=== PATIENT | female | born 1970 | race Caucasian/White ===

== ENCOUNTER 2018-02-03 06:10 | Day surgery (SDC) | payer OTHER ==
[2018-02-02 09:55] LABS: HEMATOCRIT 44.4 % (36.0-48.0); HEMOGLOBIN 15.4 g/dL (12-16); MCHC 34.7 g/dL (31.0-37.0); MCV 89.5 fL (80.0-100.0); MEAN PLATELET VOLUME 9.7 fL (7.4-10.4); PLATELET COUNT 212 10x3/uL (130-400); RBC 4.96 10x6/uL (4.00-5.40); RDW 13.3 % (11.5-14.5); WBC 10.8 10x3/uL (4.8-10.8)
[2018-02-02 13:35] LABS: CALC OSMOLALITY 274 mosm/kg (275-300); CALCIUM 9.2 mg/dL (8.5-10.1); CARBON DIOXIDE 24.5 mmol/L (21.0-32.0); CHLORIDE - SERUM 104 mmol/L (98-107); CREATININE - SERUM 0.8 mg/dL (0.6-1.3); GLUCOSE 85 mg/dL (74-106); POTASSIUM - SERUM 4.1 mmol/L (3.5-5.1); SODIUM 139 mmol/L (136-145); UREA NITROGEN 8 mg/dL (7-18); eGFR NON AFRICAN AMERICAN 81 mL/min (90-120)
[2018-02-02 13:42] LABS: BASOPHILS 2.8 % (0-2); EOSINOPHILS 0.8 % (0-7); IMMATURE GRANULOCYTES 0.1 % (0-5); LYMPHOCYTES 41.6 % (15-50); MONOCYTES 5.6 % (2-11); NEUTROPHILS 49.1 % (40-80)
[~2018-02-03] VITALS: Ht 170.2 cm; Wt 79.8 kg
[~2018-02-03 06:10] MED LIST: CYMBALTA60 MG PO; HYDROCODONE-IB1 EAC3 PO; PLAQUENIL 200200 MG PO; PREMARIN0.625 MG PO; REQUIP1 MG PO; VITAMIN B-121000 MCG IM
[2018-02-03 06:30] VITALS: BP 124/79; Ht 170.2 cm; Wt 79.8 kg
[2018-02-03] MEDS ORDERED: PERCOCET 7.5/321 TAB PO (08:57)
[2018-02-03] MEDS ORDERED: DURICEF500 MG PO (08:59)
--- NOTE | 2018-02-03 12:26 | NUR ---
PATIENT RECIEVED BACK FROM SURGERY WITH NO COMPLICATIONS. AT BEDSIDE VERBALIZED DC INSTRUCTIONS. PAIN PILL GIVEN BEFORE DC PER DR SCHULER. IV REMOVED WITH CATH INPLACE.
--- NOTE | 2018-02-03 12:36 | OP ---
PATIENT NAME: WILEY DE LEON MEDICAL RECORD: [id number] :70 LOCATION:STORM ADMISSION DATE: SURGEON: SELWYN SCHULER DO DATE OF OPERATION: 02/03/2018 PROCEDURE PERFORMED: Left de Quervain release or first dorsal compartment release of the left wrist. PREOPERATIVE DIAGNOSIS: Left de Quervain tenosynovitis with radial styloid tenosynovitis of the left wrist. POSTOPERATIVE DIAGNOSIS: Left de Quervain tenosynovitis with radial styloid tenosynovitis of the left wrist. INDICATIONS: Ms. De Leon is a 47-year-old female, who was seen in my office with pain with ulnar deviation of the left wrist and any abduction or adduction of the thumb with it tucked into palm. She has been dealing with this for quite some time. We tried an injection to no avail, it did not help. She is tired of it. It is affecting her activities of daily living and having tried all manner of nonoperative treatment, was ready to have something done. She was undergoing procedure by Dr. Dhaliwal today and asked that if I would do this at the same time. I informed her I would. We would do this first and then he would do his procedure. She was informed of the risks and benefits of the procedure including damage to the radial sensory nerve or vessels, need for further surgery, continued pain, and snapping of the tendon. She signed the consent. SURGEON: Selwyn Schuler DO DESCRIPTION OF PROCEDURE: The patient was taken to the operative suite, laid in supine position. Left upper extremity was prepped and draped in sterile fashion. Once she was prepped and draped, a time-out was performed. Everyone was in agreement with correct side, site, patient, and procedure. The patient was given 2 grams of Ancef preoperatively. The tourniquet was then placed on the arm and once the time-out had been performed, Esmarch was used to exsanguinate the left upper extremity and it was inflated to 250 mmHg up for 10 minutes. The incision then began over the radial styloid of the left wrist and careful dissection was made down to the first dorsal compartment tendon sheath. This was divided on the very dorsal side of it. It was seen to have an extra slip underneath of the APL and EPB. The extra slip was divided as well and opened up allowing the tendon to glide smoothly. These were both quite thick and there was quite a bit of synovitis in the tendon sheath. This was removed and then the sheath was tacked down very loosely with 5-0 Monocryl with a single stitch. Tourniquet was then let down. Any bleeding was coagulated with bipolar and then 5 mL of 0.5% Marcaine with epinephrine were injected into the site. The skin was then closed with 5-0 Monocryl in inverted interrupted fashion and Dermabond was placed on the skin. Adaptic, 4 x 4, Kerlix, and Coban was lightly wrapped on the wrist. At that point, Dr. Dhaliwal did his portion of the procedure. TRANSINT:[id number] Voice Confirmation ID: [id number] DOCUMENT ID: [id number] OPERATIVE REPORT [id number] WILEY DE LEON,SELWYN Stone DO at 1236 CC: [id number] DICTATION DATE: 02/03/18906 POUCH MAKER: 02/03/18 1131 [facility] [address] [place] [address]
--- NOTE | 2018-02-03 16:36 | OP ---
PATIENT NAME: WILEY DE LEON MEDICAL RECORD: [id number] :70 LOCATION:STORM ADMISSION DATE: SURGEON: VON ARCHER MD DATE OF OPERATION: 02/03/2018 PREOPERATIVE DIAGNOSES: 1. Bilateral axillary hidradenitis. 2. Lupus. 3. Tenosynovitis. POSTOPERATIVE DIAGNOSES: 1. Bilateral axillary hidradenitis. 2. Lupus. 3. Tenosynovitis. PROCEDURE: Bilateral axillary excision of hidradenitis. SURGEON: Von Archer MD REPORT OF PROCEDURE: The patient's bilateral axilla were prepped and draped in sterile fashion. The left side was approached first. An ovoid incision 6 cm in length was made around the area of inflamed tissue underneath an old scar from the previous axillary dissection and electrocautery was used to dissect through subcutaneous tissues. We penetrated down into the surrounding normal fatty tissues and removed this core of inflamed tissue. The wound bed was irrigated out with peroxide and saline solution. Any bleeding that was found was then treated with electrocautery. The subcutaneous tissues were reapproximated with interrupted 3-0 Vicryls and the skin was closed with interrupted vertical mattress sutures using 2-0 nylon. Just below and anterior to this, there was another small area of inflammatory tissue. An ovoid incision 3-1/2 cm in length was made around this. Electrocautery was used to dissect through the subcutaneous tissues. Surrounding this tissue was normal appearing fatty tissue. The wound was then irrigated out with peroxide and saline solution and reapproximated with interrupted 3-0 Vicryls. The skin was closed with interrupted vertical mattress 2-0 nylons. We then approached the right side. An area of inflammatory tissues on the anterior aspect of the right axilla, a 6-cm ovoid incision was made overlying this. Also, incorporating a portion of a previous scar from an axillary dissection, the subcutaneous tissue was excised including this inflammatory mass. The surrounding tissues were all normal appearing fatty tissues at the conclusion of the case. We irrigated out the wound with peroxide and saline solution and any bleeding was treated with electrocautery. The subcutaneous tissues were reapproximated with interrupted 3-0 Vicryl and the skin was closed with interrupted vertical mattress 2-0 nylons. COMPLICATIONS: None. CONDITION: Stable. ANESTHESIA: General endotracheal. BLOOD LOSS: 30 mL. TRANSINT:[id number] Voice Confirmation ID: [id number] DOCUMENT ID: [id number] OPERATIVE REPORT [id number] WILEY DE LEON CHRISTIAN MD at 1636 CC: NAHUM PORTILLO MD [id number] DICTATION DATE: 02/03/18 0949 BENDING MACHINE SET UP OPERATOR: 02/03/18 1245 [facility] 02/03/18 [place] [id number]
== END 2018-02-03 11:40 | disposition home or self-care (01) ==
LOC: D.OPS 06:10 → D.PAN 08:00 → D.OPS 11:40
PROVIDERS: Anesthesiology; Surgery
DX: L73.2 Hidradenitis suppurativa (principal); M65.4 Radial styloid tenosynovitis [de Quervain]; M32.9 Systemic lupus erythematosus, unspecified; Z01.812 Encounter for preprocedural laboratory examination

== ENCOUNTER → 2018-02-20 18:42 | Outpatient (CLI) | payer OTHER ==
[2018-02-03 06:30] VITALS: BMI 27.6
[~2018-02-20 18:42] MED LIST changes: +DURICEF500 MG PO; +PERCOCET 7.5/321 TAB PO
== END | disposition home or self-care (01) ==
LOC: D.LABREF 18:42
DX: L73.2 Hidradenitis suppurativa (principal)

== ENCOUNTER 2018-05-31 10:04 | Emergency (ER) | payer OTHER ==
[~2018-05-31] VITALS: Ht 170.2 cm; Wt 79.5 kg
[2018-05-31 10:13] VITALS: Ht 170.2 cm; Wt 79.5 kg
[2018-05-31 10:51] LABS: BASOPHILS 2.6 % (0-2); HEMATOCRIT 42.4 % (36.0-48.0); IMMATURE GRANULOCYTES 0.1 % (0-5); LYMPHOCYTES 41.1 % (15-50); MCH 31.8 pg (26.0-34.0); MCHC 35.4 g/dL (31.0-37.0); MEAN PLATELET VOLUME 9.7 fL (7.4-10.4); MONOCYTES 7.1 % (2-11); NEUTROPHILS 48.1 % (40-80); PLATELET COUNT 198 10x3/uL (130-400); RBC 4.71 10x6/uL (4.00-5.40); RDW 13.3 % (11.5-14.5); WBC 8.2 10x3/uL (4.8-10.8)
[2018-05-31] MEDS ORDERED: PROTONIX40 MG PO (10:59)
[2018-05-31 11:13] LABS: CALC OSMOLALITY 270 mosm/kg (275-300); CALCIUM 9.3 mg/dL (8.5-10.1); CARBON DIOXIDE 28.5 mmol/L (21.0-32.0); CHLORIDE - SERUM 102 mmol/L (98-107); CKMB 0.2 U/L (0.0-3.6); CREATINE KINASE 40 UL (21-215); CREATININE - SERUM 0.7 mg/dL (0.6-1.3); GLUCOSE 93 mg/dL (74-106); SODIUM 136 mmol/L (136-145); TROPONIN-I < 0.017 ng/mL (0.000-0.060); UREA NITROGEN 9 mg/dL (7-18); eGFR NON AFRICAN AMERICAN > 90 mL/min (90-120)
[2018-05-31 11:50] VITALS: BP 144/87
== END 2018-05-31 11:47 | disposition home or self-care (01) ==
LOC: D.ER 10:04
PROVIDERS: Emergency Medicine
DX: K21.9 Gastro-esophageal reflux disease without esophagitis (principal); R07.9 Chest pain, unspecified

== ENCOUNTER 2018-06-05 09:33 | Outpatient (CLI) | payer OTHER ==
[~2018-06-05] VITALS: Ht 170.2 cm; Wt 78.6 kg
--- NOTE | ~2018-06-05 | OP ---
PATIENT NAME: WILEY DE LEON MEDICAL RECORD: [id number] :70 LOCATION:D.M2 D.2121 ADMISSION DATE: SURGEON: JOSE MANUEL PIEDRA MD DATE OF OPERATION: 06/06/2018 PROCEDURE: 1. Aortofemoral runoff. 2. Abdominal aortography. INDICATION: Claudication and peripheral vascular disease. PROCEDURE IN DETAIL: After informed consent was obtained and after a detailed description of the risks, benefits as well as alternative therapies, the patient elected to proceed with angiogram and aortofemoral runoff. The left femoral area had a preexisting sheath from coronary intervention. FINDINGS: Abdominal aortography was performed. The catheter was pulled down for aortofemoral runoff. Abdominal aortography reveals no significant abdominal aortic disease, no dissection or aneurysm formation. RIGHT LEG: A. Iliac: The common internal and external iliacs have moderate irregularities, but no flow-limiting stenosis. B. Femoral system: The common superficial and deep femoral have moderate irregularities, but no flow-limiting stenosis. C. Popliteal and infrapopliteal vessels are widely patent with good 3-vessel runoff to the foot. LEFT LEG: A. Iliac: The common internal and external iliacs have moderate irregularities, but no flow-limiting stenosis. B. Femoral system: The common superficial and deep femoral have moderate irregularities, but no flow-limiting stenosis. C. Popliteal and infrapopliteal vessels are widely patent with good 3-vessel runoff to the foot. OVERALL IMPRESSION: No significant peripheral vascular disease is present. TRANSINT:[id number] Voice Confirmation ID: [id number] DOCUMENT ID: [id number] JOSE MANUEL PIEDRA MD CC: [id number] DICTATION DATE: 06/06/18 1146 AIRLINE RESERVATIONIST: 06/06/18 1157 [facility] [address] [place] [id number]
--- NOTE | ~2018-06-05 | CN ---
PATIENT NAME:WILEY DE LEON MEDICAL RECORD: [id number] : 70 LOCATION:D.CAT ADMIT DATE: ACCOUNT: [id number] CONSULTING PHYSICIAN: JOSE MANUEL PIEDRA MD REFERRING PHYSICIAN: JASE HAIR MD DATE OF CONSULTATION: 06/05/2018 ADMITTING DIAGNOSES: 1. Chest pain compatible with angina. 2. Family history of coronary disease. HISTORY OF PRESENT ILLNESS: Mrs. De Leon presents with increasing episodes of chest discomfort. This is the second time within 3 days she has been here with chest discomfort. It is worsening, it is a very typical anginal discomfort with radiation to her jaw. It broke out with diaphoresis with an episode of chest pain today. The episodes are getting worse. PHYSICAL EXAMINATION: GENERAL APPEARANCE: Well-nourished, well-developed, appears stated age. Level of distress, comfortable. PSYCHIATRIC: Mental status, alert, normal affect. Orientation, oriented to time, place and person. EYES: Lids and conjunctiva, noninjected. No discharge, no pallor. ENT: Lips, teeth, gums, normal dentition. Oropharynx, no cyanosis, no pallor. NECK: Carotid arteries, bilateral normal upstroke, no bruits, no thrills. JUGULAR VEINS: No jugular venous pressure or distention. CERVICAL LYMPH NODES: Nontender, nonenlarged. THYROID: Not enlarged. Nontender. No nodules. LUNGS: Respiratory effort, unlabored. CHEST: Normal curvature. No thoracic deformity. No chest wall tenderness. Percussion, resonant. Auscultation, clear. No wheezes, no rales, no rhonchi. CARDIOVASCULAR: Precordial exam, nondisplaced. No heaves or pericardial thrills. Rate and rhythm, regular. Heart sounds, normal S1, normal S2. No S3, no gallop, no rub. Systolic murmur, not heard. Diastolic murmur, not heard. EXTREMITIES: No cyanosis, no edema. Peripheral pulses, full and equal in all extremities, except as noted. No bruits appreciated. ABDOMEN: Soft, nondistended. Normal aorta. No bruit. Nontender. No masses. Liver, nontender, no hepatomegaly. Spleen, nontender, no splenomegaly. MUSCULOSKELETAL: No joint tenderness. No joint swelling. No erythema. NEUROLOGICAL: Normal gait, normal strength, normal tone. SKIN: Warm and dry. OVERALL IMPRESSION: Angina in an unstable fashion. We will proceed with coronary angiography. Further care depends upon the findings of the angiography. TRANSINT:[id number] Voice Confirmation ID: [id number] DOCUMENT ID: [id number] CONSULT REPORT [id number] WILEY DE LEON JEFFREY MD CC: [id number] DICTATION DATE: 06/05/18 1151 SUPERVISOR SH[employer] MAINTENANCE SERVICES: 06/05/18 1203 [facility] [address] [place] [phone]
--- NOTE | ~2018-06-05 | OP ---
PATIENT NAME: WILEY DE LEON MEDICAL RECORD: [id number] :70 LOCATION:D.M2 D.2121 ADMISSION DATE: SURGEON: JOSE MANUEL PIEDRA MD DATE OF OPERATION: 06/05/2018 PROCEDURES: 1. Left heart catheterization. 2. Selective coronary angiography. 3. Left ventriculogram. 4. PTCA stent RCA. INDICATION: Unstable angina and coronary artery disease. PROCEDURE IN DETAIL: After informed consent was obtained and after a detailed description of risks, benefits as well as alternative therapies, the patient elected to proceed with angiogram and angioplasty. The right femoral area was prepped and draped in normal sterile fashion. Right femoral artery was cannulated via modified Seldinger technique with placement of 6-Uzbek sheath. All catheters exchanged through this sheath. FINDINGS: The right coronary artery has 99% stenosis with what appears to be thrombus in the mid vessel. SELECTIVE CORONARY ANGIOGRAPHY: 1. The left anterior descending has 90% stenosis proximally, 99% stenosis in the distal vessel. 2. The left circumflex has 90% to 95% stenosis in the mid vessel. PTCA STENT OF THE RCA: The stent used was a 2.5 x 30 mm Joel. Result was 0% residual stenosis. OVERALL IMPRESSION: Successful PTCA stent of the RCA going from 99% initial stenosis to 0% residual. PLAN: PTCA stent of the LAD and circumflex in the near future. TRANSINT:[id number] Voice Confirmation ID: [id number] DOCUMENT ID: [id number] JOSE MANUEL PIEDRA MD CC: [id number] DICTATION DATE: 06/05/18 1319 PROTOHISTORIAN: 06/05/[address] [facility] [address] [place] [id number]
--- NOTE | ~2018-06-05 | HEMODYNAMI ---
PATIENT:WILEY DE LEON MEDICAL RECORD: [id number] : 70 LOCATION:[facility] ADMISSION DATE: 06/05/18 Generatedon:06/05/201813:28 Patient name: WILEY DE LEON Patient #: [id number] SSN: : 1970 Date of study: 06/05/2018 Page: Of Hemodynamic Procedure Report Patient Data Patient Demographics Procedure consent was obtained First Name: WILEY Gender: Female Last Name: MOISES : 1970 Patient #: [id number] Age: 47 year(s) Race: Unknown Additional ID: [id number] Contact details Address: [address] [place] [address] State: [place] City: [place] Zip code: [address] Past Medical History Allergies: No known allergies Admission Admission Data Admission Date: 06/05/2018 Admission Time: 9:33 Height (in.): 66.93 BSA: 1.92 (m2) Height (cm.): 170 BMI: 27.68 (kg/m2) Weight (lbs.): 176.37 Weight (kg.): 80 Lab Results Lab Result Date: 06/05/2018 Lab Result Time: 0:00 Biochemistry Name Units Result Min Max BUN mg/dl 15 --(--*-)-- 7 18 Creatinine mg/dl 0.9 --(-*--)-- 0.6 1.3 CBC Name Units Result Min Max Hematocrit % 39.7 -*(----)-- 42 54 Hemoglobin g/dl 14 --(*---)-- 13.5 17.5 Procedure Procedure Types Cath Procedure Diagnostic Procedure C [facility] w/Coronaries PCI Procedure Coronary Stent Coronary Stent Initial Procedure Description Procedure Date Procedure Date: 06/05/2018 Procedure Start Time: 13:04 Procedure End Time: 13:18 Procedure Staff Name Function Shira Poole RT Monitor Sukhdev Moon RT Scrub Leatha Ro RN Nurse Kai David MD Performing Physician Procedure Data Cath Procedure Fluoroscopy Diagnostic fluoroscopy Total fluoroscopy Time: 2.4 time: 2.4 min min Diagnostic fluoroscopy Total fluoroscopy dose: 388 dose: 388 mGy mGy Contrast Material Contrast Material Type Amount (ml) Isovue 300 76 Entry Location Entry Primary Successful Side Size Upsize Upsize Entry Closure Succes sful Closure Location (Fr) 1 (Fr) 2 (Fr) Remarks Device Remarks Femoral Right 5 Fr 6 Fr Exoseal artery Short Estimated blood loss: 10 ml Diagnostic catheters Device Type Used For End Catheter Placement MULTIPACK Pigtail 5 Fr Procedure catheter MULTIPACK JL 4.0 5Fr catheter MULTIPACK 3DRC 5Fr Procedure catheter Procedure Complications No complications Procedure Medications Medication Administration Route Dosage Oxygen etCO2 Nasal cannula 2 l/min Lidocaine 2% added to field 20 Heparin Flush Bag added to field 2 bags (1000units/500ml NS) 0.9% NaCl I.V. 100 ml/hr Versed I.V. 2 mg Fentanyl I.V. 100 mcg Fentanyl I.V. 50 mcg Heparin Bolus I.V. 4000 units Integrilin (Bolus I.V. 7.3 ml 2mg/ml) Versed I.V. 1 mg Plavix P.O. 600 mg Hemodynamics Rest BSA: 1.92 (m2) O2 Consumption: Estimated: 186.87 (ml/min) O2 Consumption indexed : Estimated:97.33 (ml/min/m) Heart Rate: 66 (bpm) Snapshots Pre Cath Intra NCS Post Cath Vital Signs Time Heart Resp SPO2 etCO2 NIBP (mmHg) Rhythm Pain Sedation Rate (ipm) (%) (mmHg) Status Level (bpm) 13:00:40 61 15 98 31.5 143/95(117) NSR 0 (11) 10(A) , No pain 13:05:31 62 23 100 14.2 147/94(144) NSR 0 (11) 10(A) , No pain 13:09:53 69 15 100 31.5 168/83(125) NSR 0 (11) 9(A) , No pain 13:14:19 70 25 100 32.3 171/83(123) NSR 0 (11) 9(A) , No pain 13:19:35 76 17 97 0 147/88(123) NSR 0 (11) 10(A) , No pain Medications Time Medication Route Dose Verified Delivered Reason Notes Effectiveness by by 13:00:52 Oxygen etCO2 2 Kai Zhang used for Nasal l/min Joann Ro RN procedure cannula 13:01:27 Lidocaine 2% added 20ml Kai Quinn for local to vial Joann David MD anesthetic field 13:01:33 Heparin Flush added 2 Kai Kai used for Bag to bags Joann David MD procedure (1000units/500ml field NS) 13:01:47 0.9% NaCl I.V. 100 Kai Zhang used for ml/hr Joann Ro RN procedure 13:02:32 Versed I.V. 2 mg Kai Zhang for sedation Joann Ro RN 13:02:39 Fentanyl I.V. 100 Kai Zhang for sedation mcg Joann Ro RN 13:06:04 Fentanyl I.V. 50 Kai Zhang for sedation mcg Joann Ro RN 13:06:54 Versed I.V. 1 mg Kai Zhang for sedation Joann Ro RN 13:10:08 Heparin Bolus I.V. 4000 Kai Zhang for verif ied units Joann Ro RN anticoagulation with dr david 13:11:21 Integrilin I.V. 7.3 Kai Zhang for waste d (Bolus 2mg/ml) ml Joann Ro RN antiplatelet 2.7 ml therapy of vial 13:16:39 Plavix P.O. 600 Kai Zhang for mg Joann Ro RN antiplatelet therapy Procedure Log Time Note 12:40:06 Signed procedure consent form obtained from patient. 12:40:06 Time tracking: Regular hours (M-F 7:00 - 5:00) 12:40:10 Plan of Care:Hemodynamics will remain stable., Cardiac rhythm will remain stable., Comfort level will be maintained., Respiratory function will remain adequate., Patient/ family verbilizes understanding of procedure., Procedure tolerated without complication., Recovers from procedure without complications.. 12:40:12 Diagnostic Cath status Elective 12:40:13 Leatha Ro RN sent for patient. Start room use. 12:40:59 Patient allergic to No known allergies 12:41:24 Lab Result : Creatinine 0.9 mg/dl 12:41:24 Lab Result : BUN 15 mg/dl 12:41:24 Lab Result : Hematocrit 39.7 % 12:41:24 Lab Result : Hemoglobin 14 g/dl 12:44:52 Patient Weight : 176.37 lbs 12:44:55 Patient Height : 66.93 inches 12:50:18 Patient received from ED to CCL 1 Alert and oriented. Tansferred to table in Supine position. 12:50:19 Warm blankets applied, and tanesha hugger turned on for patient comfort. 12:50:20 Correct patient and procedure confirmed by team. 12:50:20 ECG and BP/O2 sat monitors applied to patient. 12:59:29 Vital chart was started 12:59:31 Full Disclosure recording started 12:59:34 H&P Date Dictated: 06/05/2018 ER History on chart.. 12:59:35 Pre-procedure instructions explained to patient. 12:59:35 Pre-op teaching completed and patient verbalized understanding. 12:59:37 Family in waiting room. 12:59:38 Patient NPO since Midnight. 12:59:39 Is patient on blood thinner?No 12:59:41 Patient diabetic? No. 12:59:43 Patient not . Patient has had hysterectomy. 12:59:45 Previous problem with sedation/anesthesia? No ? 12:59:46 Snore? Yes 12:59:47 Sleep apnea? No 12:59:48 Deviated septum? No 12:59:49 Opens mouth fully? Yes 12:59:50 Sticks out tongue? Yes 12:59:52 Airway obstruction? No ? 12:59:55 Dentures? No ? 12:59:59 Pre procedure: right dorsailis pedis pulse 1+ Palpable, but thready & weak; easily obliterated 13:00:02 Patient pain scale 0/10 ?. 13:00:06 IV patent on arrival in left hand with 0.9% NaCl at [facility]. 13:00:08 Lab results completed and on chart. 13:00:12 Right groin area was prepped with chlora-prep and draped in sterile fashion 13:00:14 Alarms reviewed by R. N. 13:00:14 Sharps counted by scrub and verified by R.N. 13:00:20 Use device set Femoral Dx 13:00:20 ACIST Syringe (54328) opened to sterile field. 13:00:21 Bag Decanter (2002S) opened to sterile field. 13:00:22 ACIST Hand Control (53230) opened to sterile field. 13:00:22 ACIST Manifold (51796) opened to sterile field. 13:00:23 Tegaderm 4 x 4 (1626W) opened to sterile field. 13:00:24 Medline Cath Pack ([id number]) opened to sterile field. 13:00:25 DIAGNOSTIC WIRE .035 260cm J wire (020165) opened to sterile field. 13:00:25 DIAGNOSTIC Multipack 5Fr catheter set (LA3221) opened to sterile field. 13:00:26 SHEATH 5FR [place] (XAS030) opened to sterile field. 13:00:52 Oxygen 2 l/min etCO2 Nasal cannula was administered by Leatha Ro RN; used for procedure; 13:01:10 --------ALL STOP TIME OUT------ 13:01:11 Final Timeout: patient, procedure, and site verified with staff and physician. All members of the team are in agreement. 13:01:12 Right groin site verified by team. 13:01:14 Maximum allowable Isovue 300 dose 300ml. Physician notified. (300ml for normal creatinines. For patients with creatinine of 1.7 or higher multiply weight(kg) x 5 divided by creatinine.) 13:01:18 Fire Safety Assessment: A--An alcohol-based skin anteseptic being used preoperatively., C--Open oxygen or nitrous oxide is being used., D--An ESU, laser, or fiber-optic light is being used. 13:01:20 Physical assessment completed. ASA score P 2 - A patient with mild systemic disease as per Osmel Christina MD. 13:01:23 Sedation plan: IV Moderate Sedation Medication:Versed, Fentanyl 13:01:27 Lidocaine 2% 20ml vial added to field was administered by Kai David MD; for local anesthetic; 13:01:33 Heparin Flush Bag (1000units/500ml NS) 2 bags added to field was administered by Kai David MD; used for procedure; 13:01:47 0.9% NaCl 100 ml/hr I.V. was administered by Leatha Ro RN; used for procedure; 13:02:32 Versed 2 mg I.V. was administered by Leatha Ro RN; for sedation; 13:02:39 Fentanyl 100 mcg I.V. was administered by Leatha Ro RN; for sedation; 13:04:48 Zero performed for pressure channel P1 13:04:52 Zero performed for pressure channel P1 13:04:54 Procedure started. 13:04:58 Local anesthetic to right femoral artery with Lidocaine 2% by Osmel Christina MD.INITIAL ACCESS ONLY 13:05:05 A 5 Fr sheath was inserted into the Right Femoral artery 13:05:40 Baseline sample Acquired. 13:05:43 Rhythm: sinus rhythm 13:05:49 A MULTIPACK Pigtail 5 Fr catheter was advanced over the wire and used for Procedure. 13:05:55 LV gram done using LEES 13:05:57 Injector settings: Ml/sec: 10, Volume: 20, 13:06:04 Fentanyl 50 mcg I.V. was administered by Leatha Ro RN; for sedation; 13:06:13 EF : 60 % 13:06:15 Catheter removed. 13:06:22 A MULTIPACK JL 4.0 5Fr catheter was advanced over the wire and used for . 13:06:54 Versed 1 mg I.V. was administered by Leatha Ro RN; for sedation; 13:07:43 LCA angiography performed. 13:07:44 Catheter removed. 13:07:56 A MULTIPACK 3DRC 5Fr catheter was advanced over the wire and used for Procedure. 13:08:39 RCA angiography performed. 13:08:41 Catheter removed. 13:09:00 SHEATH 6FR [place] (VHR938) opened to sterile field. 13:09:01 INFLATOR Merit BasixCompak (HX8640) opened to sterile field. 13:09:01 CHOICE PT Extra Support 182cm wire ([id number]) opened to sterile field. 13:09:12 Sheath upsized to a 6 Fr Short. 13:09:38 GUIDE 6FR AR 2.0 SH catheter ([id number]) opened to sterile field. 13:09:45 6 Fr AR 2 SH guide catheter was inserted over the wire 13:10:08 Heparin Bolus 4000 units I.V. was administered by Leatha Ro RN; for anticoagulation; verified with dr david 13:11:01 CHOICE ES 182 wire advanced. 13:11:02 Wire advanced across lesion. 13:11:21 Integrilin (Bolus 2mg/ml) 7.3 ml I.V. was administered by Leatha Ro RN; for antiplatelet therapy; wasted 2.7 ml of vial 13:12:46 Place stent Inflation Number: 1 A NEO RX 2.5 x 30 stent ([id number]) was prepped and advanced across the Prox RCA. The stent was deployed at 17 GONZALEZ for 0:10 (min:sec). 13:13:08 Stent catheter was removed intact over wire. 13:13:09 Wire removed. 13:13:10 Guide catheter removed. 13:13:35 EXOSEAL 6Fr (EX600) opened to sterile field. 13:13:50 Sheath removed intact; hemostasis achieved with Exoseal to the Right Femoral artery. 13:13:52 Procedure ended.(Physican Out) 13:16:17 Fluoroscopy time 02.40 minutes. 13:16:22 Flurop Dose total: 388 13:16:22 Fluoroscopy dose: 388 mGy 13:16:26 Contrast amount:Isovue 300 76ml. 13:16:27 Sharps counted by scrub and verified by R.N. 13:16:29 Post-op/insertion site Right Femoral artery dressed using a 4 x 4 and Tegaderm. 13:16:32 Post-procedure physical assessment completed. ASA score P 2 - A patient with mild systemic disease as per Kai David MD. 13:16:39 Plavix 600 mg P.O. was administered by Leatha Ro RN; for antiplatelet therapy; 13:17:01 Post procedure rhythm: sinus rhythm 13:17:03 Estimated blood loss: 10 ml 13:17:04 Post procedure instruction explained to patient.Patient verbalizes understanding. 13:17:05 Patient needs reinforcement of post procedure teaching. 13:17:17 Procedure type changed to Cath procedure, Diagnostic procedure, LHC, LHC w/Coronaries, PCI procedure, Coronary Stent, Coronary Stent Initial 13:18:01 Procedure and supply charges have been captured, reviewed, submitted and are correct. 13:18:03 Procedure Complication : No complications 13:18:05 Vital chart was stopped 13:18:05 See physician's report for complete and final results. 13:18:08 Report given to PCU. 13:18:11 Patient transfered to PCU with Bed. 13:18:12 Procedure ended. 13:18:12 Full Disclosure recording stopped 13:18:15 End room use (Document Last) 13:27:17 FEMSTOP Gold ([id number]) opened to sterile field. 13:27:25 Femstop placed over the right femoral artery at 150 mmHg. Hemostasis achieved. Intervention Summary Intervention Notes Time ActionType Lesion and Equipment Used Action# Pressure Duration Attributes 13:12:46 Place stent Prox RCA NEO RX 2.5 x 1 17 00:10 30 stent ([id number]) Device Usage Item Name Manufacture Quantity Catalog Number Hospital Part Current M inimal Lot# / Charge Number Stock Stock Serial# Code ACIST Syringe Acist 1 60106 489904 100795 980931 2 0 (24608) [employer] Bag Decanter Microtek 1 2001S 040369 75662 498440 5 (2001S) Medical Inc. ACIST Hand Acist 1 52530 203381 052670 674240 5 Control Medical (97425) Systems Inc ACIST Manifold Acist 1 88838 620955 575764 328837 5 (84725) Medical Systems Inc Tegaderm 4 x 4 3M 1 1626W 123541 016995 661292 5 (1626W) Medline Cath Medline 1 [id number] 360077 02519 255062 5 Pack ([id number]) DIAGNOSTIC [place] 1 476757 846759 484000 386096 3 0 WIRE .035 260cm J wire (433567) DIAGNOSTIC Cardinal 1 MM3539 316007 61050 996375 3 0 Multipack 5Fr Health catheter set (GV5151) SHEATH 5FR Terumo 1 QTU218 824287 658877 170308 5 [place] (DQG908) MULTIPACK Cardinal 1 522615 5 Pigtail 5 Fr Health catheter MULTIPACK JL Cardinal 1 857014 5 4.0 5Fr Health catheter MULTIPACK 3DRC Cardinal 1 341313 5 5Fr catheter Health SHEATH 6FR Terumo 1 OLZ811 467583 406131 837427 4 0 [place] (RQX676) INFLATOR Merit Merit 1 VJ8132 874926 997606 721856 1 5 Viewfinity (YL9795) CHOICE PT [place] 1 [id number] 325869 876794 382597 5 Extra Support Scientific 182cm wire ([id number]) GUIDE 6FR AR Medtronic 1 [id number] 195609 71348 516773 1 2.0 SH catheter ([id number]) NEO RX 2.5 x Medtronic 1 [id number] 379915 1206247 357431 5 [id number] 30 stent ([id number]) EXOSEAL 6Fr Cardinal 1 EX600 449652 012309 783906 1 0 (EX600) [facility] FEMSTOP Gold [place] 1 U16949 688623 545367 840170 5 (L70432) Signature Audit Schroeder Stage Time Signature Unsigned Intra-Procedure 06/05/2018 Shira Poole 1:27:58 PM RT(R) Signatures Monitor : Shira Poole Signature : RT Date : Time : [address] [id number]
--- NOTE | ~2018-06-05 | HEMODYNAMI ---
PATIENT:WILEY DE LEON MEDICAL RECORD: [id number] : 70 LOCATION:[facility] [address] [id number] ADMISSION DATE: 06/05/18 Generatedon:06/06/201811:50 Patient name: WILEY DE LEON Patient #: [id number] SSN: : 1970 Date of study: 06/06/2018 Page: Of Hemodynamic Procedure Report Patient Data Patient Demographics Procedure consent was obtained First Name: WILEY Gender: Female Last Name: MOISES : 1970 Patient #: [id number] Age: 47 year(s) Race: Unknown Additional ID: [id number] Contact details [address]: [address] [place] [address] State: [place] City: [place] Zip code: [address] Past Medical History Allergies: No known allergies Admission Admission Data Admission Date: 06/05/2018 Admission Time: 9:33 Admit Source: Other Room #: D.2121 Height (in.): 66.93 BSA: 1.92 (m2) Height (cm.): 170 BMI: 27.68 (kg/m2) Weight (lbs.): 176.37 Weight (kg.): 80 Lab Results Lab Result Date: 06/05/2018 Lab Result Time: 0:00 Biochemistry Name Units Result Min Max BUN mg/dl 15 --(--*-)-- 7 18 Creatinine mg/dl 0.9 --(-*--)-- 0.6 1.3 CBC Name Units Result Min Max Hematocrit % 39.7 -*(----)-- 42 54 Hemoglobin g/dl 14 --(*---)-- 13.5 17.5 Procedure Procedure Types Cath Procedure Diagnostic Procedure Sedation Charges Moderate Sedation up to 15 minutes PCI Procedure Coronary Stent Coronary Stent Initial x2 Peripheral Cath Diagnostic Procedure Senior Solutions Architect Peripheral Procedures Pjnkq-Gzuynfa-Yhv-Off Procedure Description Procedure Date Procedure Date: 06/06/2018 Procedure Start Time: 11:24 Procedure End Time: 11:46 Procedure Staff Name Function Kai David MD Performing Physician Shira Poole RT Monitor Sukhdev Moon RT Scrub Jorden Layton RN Nurse Leatha Ro RN Glue Spreading Machine Operator Procedure Data Cath Procedure Fluoroscopy Diagnostic fluoroscopy Total fluoroscopy Time: 5.5 time: 5.5 min min Diagnostic fluoroscopy Total fluoroscopy dose: 570 dose: 570 mGy mGy Contrast Material Contrast Material Type Amount (ml) Isovue 300 106 Entry Location Entry Primary Successful Side Size Upsize Upsize Entry Closure Succes sful Closure Location (Fr) 1 (Fr) 2 (Fr) Remarks Device Remarks Femoral Left 6 Fr Exoseal artery Short Estimated blood loss: 10 ml Diagnostic catheters Device Type Used For End Catheter Placement DIAGNOSTIC Pigtail 5Fr Procedure catheter ([id number]) Procedure Complications No complications Procedure Medications Medication Administration Route Dosage 0.9% NaCl I.V. 100 ml/hr Oxygen 2 l/min Heparin Flush Bag added to field 2 bags (1000units/500ml NS) Lidocaine 2% added to field 20 Versed I.V. 2 mg Fentanyl I.V. 100 mcg Versed I.V. 2 mg Fentanyl I.V. 100 mcg Versed I.V. 1 mg Heparin Bolus I.V. 4000 units Versed I.V. 1 mg Hemodynamics Rest BSA: 1.92 (m2) HGB: 14 (g/dl) O2 Consumption: Estimated: 184.06 (ml/min) O2 Cons umption indexed: Estimated:95.86 (ml/min/m) Heart Rate: 62 (bpm) Snapshots Pre Cath Intra NCS Post Cath Vital Signs Time Heart Resp SPO2 etCO2 NIBP (mmHg) Rhythm Pain Sedation Rate (ipm) (%) (mmHg) Status Level (bpm) 10:56:28 65 12 100 21 147/85(131) NSR 0 (11) 10(A) , No pain 11:01:41 61 18 99 20.3 145/91(137) NSR 0 (11) 10(A) , No pain 11:06:55 60 31 100 32.3 155/83(135) NSR 0 (11) 10(A) , No pain 11:11:13 59 18 100 31.5 163/85(118) NSR 0 (11) 10(A) , No pain 11:15:33 63 11 99 31.5 156/89(120) NSR 0 (11) 10(A) , No pain 11:19:53 62 14 99 31.5 137/82(108) NSR 0 (11) 10(A) , No pain 11:24:03 64 18 99 32.3 140/88(113) NSR 0 (11) 10(A) , No pain 11:28:44 63 11 99 0 119/100(107) NSR 0 (11) 9(A) , No pain 11:33:47 64 10 99 0 153/72(99) NSR 0 (11) 9(A) , No pain 11:38:07 65 13 100 0.7 144/77(112) NSR 0 (11) 10(A) , No pain 11:42:21 61 13 100 3 137/87(104) NSR 0 (11) 10(A) , No pain 11:46:35 61 12 100 0 154/81(114) NSR 0 (11) 10(A) , No pain Medications Time Medication Route Dose Verified Delivered Reason Notes Effectiveness by by 10:53:16 0.9% NaCl I.V. 100 Jorden Ojrden Per physician ml/hr Kinjal Layton RN RN 10:53:35 Oxygen 2 Jorden Jorden for low 02 sats l/min Kinjal Layton RN RN 10:53:49 Heparin Flush added 2 Jorden Jorden used for Bag to bags Kinjal Layton procedure (1000units/500ml RN RN NS) 10:53:59 Lidocaine 2% added 20ml Jorden Jorden for local to vial Kinjal Layton anesthetic field JOLLY RN 11:20:50 Versed I.V. 2 mg Jorden Jorden for sedation Kinjal Layton RN RN 11:20:57 Fentanyl I.V. 100 Jorden Jorden for sedation mcg Kinjal Layton RN RN 11:23:40 Versed I.V. 2 mg Jorden Jorden for sedation Kinjal Layton RN RN 11:23:45 Fentanyl I.V. 100 Jorden Jorden for sedation mcg Kinjal Layton RN RN 11:24:30 Versed I.V. 1 mg Jorden Jorden for sedation Kinjal Layton RN RN 11:26:19 Versed I.V. 1 mg Jorden Jorden for sedation Kinjal Layton RN RN 11:29:58 Heparin Bolus I.V. 4000 Jorden Jorden for units Kinjal Layton anticoagulation RN barrel polisher Log Time Note 10:33:34 Patient Height : 66.93 inches 10:33:34 Patient Weight : 176.37 lbs 10:33:44 Informed consent obtained and on chart 10:33:48 Admit Source: Other 10:34:02 Diagnostic Cath status Elective 10:34:04 Leatha Ro RN sent for patient. Start room use. 10:34:06 Time tracking: Regular hours (M-F 7:00 - 5:00) 10:34:09 Plan of Care:Hemodynamics will remain stable., Cardiac rhythm will remain stable., Comfort level will be maintained., Respiratory function will remain adequate., Patient/ family verbilizes understanding of procedure., Procedure tolerated without complication., Recovers from procedure without complications.. 10:44:18 Patient received from Med II to [facility] 2 Alert and oriented. Tansferred to table in Supine position. 10:44:20 Warm blankets applied, and tanesha hugger turned on for patient comfort. 10:44:21 Correct patient and procedure confirmed by team. 10:44:21 ECG and BP/O2 sat monitors applied to patient. 10:53:16 0.9% NaCl 100 ml/hr I.V. was administered by Jorden Layton RN; Per physician; 10:53:35 Oxygen 2 l/min was administered by Jorden Layton RN; for low 02 sats; 10:53:49 Heparin Flush Bag (1000units/500ml NS) 2 bags added to field was administered by Jorden Layton RN; used for procedure; 10:53:59 Lidocaine 2% 20ml vial added to field was administered by Jorden Layton RN; for local anesthetic; 10:54:03 Vital chart was started 10:57:13 Baseline sample Acquired. 10:57:17 Rhythm: sinus rhythm 10:57:25 Full Disclosure recording started 10:57:34 Pre-procedure instructions explained to patient. 10:57:34 Pre-op teaching completed and patient verbalized understanding. 10:57:37 Family in patients room. 10:57:53 Patient NPO since Midnight. 10:58:03 Patient allergic to No known allergies 10:58:05 Is patient on blood thinner?Yes 10:58:07 ACC The patient was administered the following blood thiners within the last 24 hours: ACCPlavix 10:58:09 Patient diabetic? No. 10:58:12 Patient not . Patient has had hysterectomy. 10:58:14 Previous problem with sedation/anesthesia? No ? 10:58:16 Snore? No 10:58:17 Sleep apnea? No 10:58:18 Deviated septum? No 10:58:22 Opens mouth fully? Yes 10:58:24 Sticks out tongue? Yes 10:58:27 Airway obstruction? No ? 10:58:36 Dentures? No ? 10:58:40 Pre procedure: left dorsailis pedis pulse 1+ Palpable, but thready & weak; easily obliterated 10:58:43 Patient pain scale 0/10 ?. 11:00:22 IV patent on arrival in left hand with 0.9% NaCl at [facility]. 11:00:37 Lab results completed and on chart. 11:00:41 Left groin area was prepped with chlora-prep and draped in sterile fashion 11:00:42 Alarms reviewed by R. N. 11:00:42 Sharps counted by scrub and verified by R.N. 11:01:28 Use device set CATH PACK 11:01:29 ACIST Syringe (36224) opened to sterile field. 11:01:29 ACIST Hand Control (69373) opened to sterile field. 11:01:30 ACIST Manifold (32284) opened to sterile field. 11:01:30 Medline Cath Pack ([id number]) opened to sterile field. 11:01:30 Bag Decanter (2002) opened to sterile field. 11:01:31 DIAGNOSTIC WIRE .035 260cm J wire (133802) opened to sterile field. 11:02:05 SHEATH 6FR [place] (TVV881) opened to sterile field. 11:02:05 CHOICE PT Extra Support 182cm wire ([id number]) opened to sterile field. 11:02:06 INFLATOR Merit BasixCompak (FS1500) opened to sterile field. 11:02:20 Baseline sample Acquired. 11:02:25 Zero performed for pressure channel P1 11:20:39 Physician arrived 11:20:40 --------ALL STOP TIME OUT------ 11:20:41 Final Timeout: patient, procedure, and site verified with staff and physician. All members of the team are in agreement. 11:20:47 Left groin site verified by team. 11:20:50 Versed 2 mg I.V. was administered by Jorden Layton RN; for sedation; 11:20:54 Maximum allowable Isovue 300 dose 300ml. Physician notified. (300ml for normal creatinines. For patients with creatinine of 1.7 or higher multiply weight(kg) x 5 divided by creatinine.) 11:20:57 Fentanyl 100 mcg I.V. was administered by Jorden Layton RN; for sedation; 11:20:59 Fire Safety Assessment: A--An alcohol-based skin anteseptic being used preoperatively., C--Open oxygen or nitrous oxide is being used., D--An ESU, laser, or fiber-optic light is being used. 11:21:05 Physical assessment completed. ASA score P 2 - A patient with mild systemic disease as per Kai David MD. 11:21:09 Physical assessment completed. ASA score P 2 - A patient with mild systemic disease as per Kai David MD. 11:21:14 Sedation plan: IV Moderate Sedation Medication:Versed, Fentanyl 11:22:59 GUIDE 6FR XBLAD 3.5 SH catheter ([id number]) opened to sterile field. 11:23:40 Versed 2 mg I.V. was administered by Jorden Layton RN; for sedation; 11:23:45 Fentanyl 100 mcg I.V. was administered by Jorden Layton RN; for sedation; 11:24:16 Procedure started. 11:24:22 Local anesthetic to left femerol artery with Lidocaine 2% by Kai David MD.INITIAL ACCESS ONLY 11:24:30 Versed 1 mg I.V. was administered by Jorden Layton RN; for sedation; 11:24:51 A DIAGNOSTIC Pigtail 5Fr catheter ([id number]) was advanced over the wire and used for Procedure. 11:26:19 Versed 1 mg I.V. was administered by Jorden Layton RN; for sedation; 11:27:23 Abdominal angiogram w/ runoff was performed. 11:27:49 Left leg runoff performed. 11:28:06 Right leg runoff performed. 11:28:19 Catheter exchanged over wire. 11:28:29 GUIDE 6FR XBLAD 3.5 SH catheter ([id number]) opened to sterile field. 11:28:38 6 Fr XBLAD 3.5 SH' guide catheter was inserted over the wire 11::58 Heparin Bolus 4000 units I.V. was administered by Jorden Layton RN; for anticoagulation; ::58 CHOICE PT ES wire advanced. 11:31:12 Wire advanced across lesion. 11:32:07 Place stent Inflation Number: 1 A NEO RX 2.0 x 12 stent ([id number]) was prepped and advanced across the Mid CX. The stent was deployed at 11 GONZALEZ for 0:10 (min:sec). 11:32:42 Wire redirected to LAD. 11:33:48 Wire advanced across lesion. 11:33:51 Stent catheter was removed intact over wire. 11:35:24 Place stent Inflation Number: 1 A NEO RX 2.0 x 8 stent ([id number]) was prepped and advanced across the Dist LAD. The stent was deployed at 11 GONZALEZ for 0:10 (min:sec). 11:35:26 Stent catheter was removed intact over wire. 11:38:20 Place stent Inflation Number: 1 A NEO RX 2.25 x 22 stent ([id number]) was prepped and advanced across the Mid LAD. The stent was deployed at 13 GONZALEZ for 0:10 (min:sec). 11:38:28 Stent catheter was removed intact over wire. 11:38:29 Wire removed. 11:38:33 Guide catheter removed. 11:38:39 EXOSEAL 6Fr (EX600) opened to sterile field. 11:38:56 A 6 Fr Short sheath was inserted into the Left Femoral artery 11:41:10 Sheath removed intact; hemostasis achieved with Exoseal to the Left Femoral artery. 11:41:12 Procedure ended.(Physican Out) 11:41:47 Fluoroscopy time 05.50 minutes. 11:41:50 Flurop Dose total: 570 11:41:50 Fluoroscopy dose: 570 mGy 11:41:54 Contrast amount:Isovue 300 106ml. 11:41:55 Sharps counted by scrub and verified by R.N. 11:43:15 Insertion/operative site no bleeding no hematoma. 11:43:23 Post-op/insertion site Left Femoral artery dressed using a 4 x 4 and Tegaderm. 11:43:28 Post left femerol artery:stable, soft, clean and dry 11:43:29 Post Procedure Pulses reassessed and unchanged 11:43:33 Post-procedure physical assessment completed. ASA score P 2 - A patient with mild systemic disease as per Kai David MD. 11:43:34 Post procedure rhythm: unchanged. 11:43:38 Estimated blood loss: 10 ml 11:43:40 Post procedure instruction explained to patient.Patient verbalizes understanding. 11:43:41 Patient needs reinforcement of post procedure teaching. 11:43:55 Procedure type changed to Cath procedure, Diagnostic procedure, Sedation Charges, Moderate Sedation up to 15 minutes, PCI procedure, Coronary Stent, Coronary Stent Initial x2, Peripheral Cath Diagnostic Procedure, Senior Solutions Architect Peripheral Procedures, Fzdlw-Gmexbwd-Qrm-Off 11:46:01 Procedure and supply charges have been captured, reviewed, submitted and are correct. 11:46:03 Procedure Complication : No complications 11:46:09 Vital chart was stopped 11:46:25 Femstop placed over the left femerol artery at 178 mmHg. Hemostasis achieved. 11:46:26 FEMSTOP Gold (E50691) opened to sterile field. 11:46:43 See physician's report for complete and final results. 11:46:44 Report given to Pre/Post Procedure Room. 11:46:46 Patient transfered to Pre/Post Procedure Room with Stretcher. 11:46:47 Procedure ended. 11:46:47 Full Disclosure recording stopped 11:46:52 End room use (Document Last) Intervention Summary Intervention Notes Time ActionType Lesion and Equipment Used Action# Pressure Duration Attributes 11:32:07 Place stent Mid CX NEO RX 2.0 x 1 11 00:10 12 stent ([id number]) 11:35:24 Place stent Dist LAD NEO RX 2.0 x 1 11 00:10 8 stent ([id number]) 11:38:20 Place stent Mid LAD NEO RX 2.25 x 1 13 00:10 22 stent ([id number]) Device Usage Item Name Manufacture Quantity Catalog Number Hospital Part Current M inimal Lot# / Charge Number Stock Stock Serial# Code ACIST Syringe Acist 1 39653 506212 311920 709255 2 0 (68887) Adaptive S[employer] Inc ACIST Hand Acist 1 95856 438538 037918 030341 5 Control Medical (09514) Systems Inc ACIST Manifold Acist 1 71220 693721 301775 989636 5 (90939) Medical Systems Inc Medline Cath Medline 1 [id number] 170334 66996 134319 5 Pack ([id number]) Bag Decanter Microtek 1 2001S 063529 10767 645541 5 (2001S) Medical Inc. DIAGNOSTIC [place] 1 001845 567637 060033 326436 3 0 WIRE .035 260cm J wire (899979) SHEATH 6FR Terumo 1 VPU993 408602 119251 360124 4 0 [place] (TRK290) CHOICE PT [place] 1 [id number] 513828 550758 158152 5 Extra Support Scientific 182cm wire ([id number]) INFLATOR Merit Merit 1 VH2428 385862 166138 748914 1 5 Complete Network Technology (SR2246) GUIDE 6FR Cardinal 2 [id number] 432080 257076 664579 3 XBLAD 3.5 SH Health catheter ([id number]) DIAGNOSTIC Cardinal 1 [id number] 667611 403923 857293 5 Pigtail 5Fr Health catheter (050123S) NEO RX 2.0 x Medtronic 1 [id number] 208094 0257799 899349 5 [id number] 12 stent ([id number]) NEO RX 2.0 x Medtronic 1 [id number] 664923 8188844 608061 5 [id number] 8 stent ([id number]) NEO RX 2.25 x Medtronic 1 [id number] 263868 9540232 484896 5 [id number] 22 stent ([id number]) EXOSEAL 6Fr Cardinal 1 EX600 422637 302647 244328 1 0 (EX600) Health FEMSTOP Gold [place] 1 [id number] 354941 930658 994435 5 ([id number]) Signature Audit [place] Stage Time Signature Unsigned Intra-Procedure 06/06/2018 Sukhdev Moon 11:50:04 AM RT(R) Signatures Monitor : Shira Poole Signature : RT Date : Time : [id number] [place] [address]
--- NOTE | ~2018-06-05 | OP ---
PATIENT NAME: WILEY DE LEON MEDICAL RECORD: [id number] :70 LOCATION:D.M2 D.2121 ADMISSION DATE: SURGEON: JOSE MANUEL PIEDRA MD DATE OF OPERATION: 06/06/2018 PROCEDURES: 1. PTCA stent LAD. 2. PTCA stent left circumflex. 3. Selective coronary angiography. INDICATION: Angina and coronary artery disease. DESCRIPTION OF PROCEDURE: After informed consent was obtained and after a detailed description of risks, benefits as well as alternative therapies, the patient elected to proceed with angiogram and angioplasty. The left femoral area was prepped and draped in normal sterile fashion. Left femoral artery was cannulated via modified Seldinger technique with placement of 6-Greenlandic sheath. All catheters exchanged through this sheath. FINDINGS: The left anterior descending has 90% stenosis proximally, 99% stenosis in the mid vessel. The mid vessel addressed with a 2.0 x 8 mm Joel stent, proximal was addressed with a 2.25 x 22 mm [place] stent. Result was 0% residual stenosis. PTCA STENT OF THE LEFT CIRCUMFLEX: Circumflex was 90% stenosed in the mid vessel. The stent used was a 2.0 x 12 mm [place]. Result was 0% residual stenosis. OVERALL IMPRESSION: Successful PTCA stent of the LAD and circumflex going from 90% to 95% initial stenosis to 0% residual. TRANSINT:[id number] Voice Confirmation ID: [id number] DOCUMENT ID: [id number] JOSE MANUEL PIEDRA MD CC: [id number] DICTATION DATE: 06/06/18 1146 HISTOLOGIC TECHNICIAN: 06/06/18 1157 [facility] [address] [place] [address]
--- NOTE | ~2018-06-05 | DS ---
PATIENT:WILEY DE LEON :70 MEDICAL RECORD: [id number] DISCHARGE SUMMARY ADMISSION DATE: 06/05/18 DISCHARGE DATE: 06/06/18 DATE OF DISCHARGE: 06/06/2018 DISCHARGE DIAGNOSES: 1. Unstable angina. 2. Coronary artery disease. 3. PTCA and stent of LAD, RCA, and left circumflex this admission. HISTORY AND HOSPITAL COURSE: Ms. De Leon presented with unstable anginal symptomatology, found to have 3-vessel coronary artery disease. Underwent successful PTCA and stent of all 3 vessels. Discharged home with the addition of aspirin and Plavix to her medical regimen. She will follow up with [facility] in 1 month. TRANSINT:[id number] Voice Confirmation ID: [id number] DOCUMENT ID: [id number] JOSE MANUEL PIEDRA MD CC: [id number] DICTATION DATE: 06/06/18 1147 TELETYPESETTER: 06/06/18 2243 DEP CLI 06/06/18 [facility] [address] [place] [address]
[~2018-06-05 09:33] MED LIST changes: +PROTONIX40 MG PO
[2018-06-05 10:53] LABS: ALBUMIN 3.5 g/dL (3.4-5.0); ALKALINE PHOSPHATASE 78 U/L (46-116); ALT (SGPT) 15 U/L (10-68); BILIRUBIN - TOTAL 0.29 mg/dL (0.2-1.3); CALC OSMOLALITY 275 mosm/kg (275-300); CALCIUM 9.3 mg/dL (8.5-10.1); CARBON DIOXIDE 26.5 mmol/L (21.0-32.0); CHLORIDE - SERUM 102 mmol/L (98-107); CREATININE - SERUM 0.9 mg/dL (0.6-1.3); GLUCOSE 108 mg/dL (74-106); POTASSIUM - SERUM 3.8 mmol/L (3.5-5.1); SODIUM 137 mmol/L (136-145); UREA NITROGEN 15 mg/dL (7-18); eGFR NON AFRICAN AMERICAN 71 mL/min (90-120)
[2018-06-05 11:07] LABS: AMYLASE - SERUM 56 U/L (25-115); CKMB 0.6 U/L (0.0-3.6); CREATINE KINASE 42 UL (21-215); LIPASE 120 U/L (73-393); TROPONIN-I 0.017 ng/mL (0.000-0.060)
[2018-06-05 11:37] LABS: HEMATOCRIT 39.7 % (36.0-48.0); LYMPHOCYTES 36.9 % (15-50); MCHC 35.3 g/dL (31.0-37.0); MCV 90.8 fL (80.0-100.0); MEAN PLATELET VOLUME 9.6 fL (7.4-10.4); NEUTROPHILS 55.9 % (40-80); PLATELET COUNT 168 10x3/uL (130-400); RBC 4.37 10x6/uL (4.00-5.40); RDW 13.1 % (11.5-14.5); WBC 7.4 10x3/uL (4.8-10.8)
--- NOTE | 2018-06-05 13:30 | NUR ---
RECIVED FROM DEOILING MACHINE OPERATOR PER BED, FEMSTOP TO RT GROIN, PULSE PALP
[2018-06-05 14:48] VITALS: BP 157/86; Ht 170.2 cm; Wt 78.6 kg
[2018-06-05 16:20] VITALS: BP 158/74
--- NOTE | 2018-06-05 16:39 | NUR ---
WITHOUT CHANGES NOTED AT THIS TIME. AT SIDE
--- NOTE | 2018-06-05 19:11 | NUR ---
RECIEVED UP N BED WITH EYES OPEN AND TV ON. ALERT AND ORIENTED X4. UP AD ANTONY TO B/R. DSG TO RIGHT GROIN CDI AND BRUISING TO AREA. IV TO LEFT FA SL.. TELEMETRY IN PLACE. DENIES ANY NEEDS AT THIS TIME.
[2018-06-05 20:00] VITALS: BP 131/59
[2018-06-06] VITALS: BP 128/78
[2018-06-06 04:00] VITALS: BP 130/76
--- NOTE | 2018-06-06 07:15 | NUR ---
ASSESSMENT DONE. DENIES NEEDS.
[2018-06-06 08:57] VITALS: BP 124/78
--- NOTE | 2018-06-06 11:00 | NUR ---
TO CONFIGURATION TECHNICIAN PER BED
--- NOTE | 2018-06-06 12:00 | NUR ---
PT ARRIVED BY STRETCHER. PLACED ON MONITORS. NO FAMILY AT THIS TIME. PT INSTRUCTED TO KEEP HEAD FLAT ON PILLOW AND RIGHT LEG STRAIGHT. FEMSTOP TO LEFT GROIN AT 166mmHg. NO BLEEDING/HEMATOMA NOTED.
--- NOTE | 2018-06-06 12:00 | NUR ---
PT ARRIVED BY STRETCHER. PLACED ON MONITORS. FEMSTOP TO LEFT GROIN AT 166mmHg. NO BLEEDING/HEMATOMA.
[2018-06-06] MEDS ORDERED: BAYER CHEWABLE81 MG PO (12:02)
[2018-06-06] MEDS ORDERED: PRAVACHOL40 MG PO (12:03)
[2018-06-06] MEDS ORDERED: PLAVIX75 MG PO (12:03)
--- NOTE | 2018-06-06 12:11 | NUR ---
I have reviewed this patient and I concur with the Shift Assessment completed by the Licensed Practical Nurse today this shift.
--- NOTE | 2018-06-06 12:18 | NUR ---
FEMSTOP REMAINS TO L/GROIN WITH PRESSURE AT 160. L/FOOT IS WARM TO TOUCH HR 56 BP 142/73 CHEST PAIN IS DENIED
--- NOTE | 2018-06-06 12:25 | NUR ---
RESTING QUIETLY WITH NO DISTRESS NOTED HR 56 BP 146/76. L/GROIN CDI WITH FEMSTOP IN PLACE
--- NOTE | 2018-06-06 12:45 | NUR ---
PT ON BEDPAN. VOIDED APPROX 150CC OF YELLOW URINE WITHOUT DIFFICULTY. RANGEL-CARE GIVEN AND PT ASSISTED BACK OVER TO SUPINE POSITION. LEFT GROIN STABLE WITH FEMSTOP. NO BLEEDING/HEMATOMA NOTED.
--- NOTE | 2018-06-06 13:00 | NUR ---
PRESSURE TO FEMSTOP LOWERED TO 130 WITH NO BLEEDING NOTED. HR 55 BP 163/73 CHEST PAIN IS DENIED.
--- NOTE | 2018-06-06 13:22 | NUR ---
FEMSTOP TO LEFT GROIN DECREASED TO 110mmHg. NO BLEEDING/HEMATOMA NOTED. HR 54 BP 163/73. PT TOLERATING WELL.
--- NOTE | 2018-06-06 13:47 | NUR ---
PRESSURE TO FEMSTOP LOWERED TO 80 NO BLEEDING NOTED
--- NOTE | 2018-06-06 13:57 | NUR ---
PRESSURE FROM FEMSTOP RELEASED WITH BELT REMAINING IN PLACE NO BLEEDING NOTED.
--- NOTE | 2018-06-06 14:27 | NUR ---
FEMSTOP REMOVED. DRESSING APPLIED TO LEFT GROIN. NO BLEEDING/HEMATOMA NOTED. VSS. WILL CONTINUE TO MONITOR.
--- NOTE | 2018-06-06 14:41 | NUR ---
HEAD OF BED INC TO 30 DEGREES. PT HAS EATING FOOD THAT HER FAMILY BROUGHT. DENIES NAUSEA. LEFT GROIN DRESSING C/D/I. NO S/S OF HEMATOMA NOTED. VSS.
--- NOTE | 2018-06-06 15:14 | NUR ---
LEFT FA PIV D/C'D WITH CATH TIP INTACT. PT TOLERATED WELL. VSS. LEFT GROIN DRESSING C/D/I. NO S/S OF HEMATOMA NOTED. PT INSTRUCTED TO GET UP AND DRESSED. FAMILY AT BEDSIDE FOR ASSISTANCE.
--- NOTE | 2018-06-06 15:15 | NUR ---
PT AMUBLATED TO RESTROOM WITHOUT ASSISTANCE. VOIDED WITHOUT DIFFICULTY.
--- NOTE | 2018-06-06 15:23 | NUR ---
DISCUSSED DISCHARGE INSTRUCTIONS WITH PT AND PT'S FAMILY. THEY VOICED UNDERSTANDING. BILATERAL GROIN SITES WITH DRESSINGS C/D/I. NO S/S OF HEMATOMA.
--- NOTE | 2018-06-06 15:30 | NUR ---
PT TAKEN OUT TO VEHICLE BY WHEELCHAIR. NO S/S OF DISTRESS NOTED. ALL BELONGINGS AND PAPERWORK IN HAND.
== END 2018-06-06 15:30 | disposition home or self-care (01) ==
LOC: D.M2 09:33 → D.CATH 09:33 → D.ER 09:33 → EDSTATUS 12:00 → D.M2 13:44 → D.CLR 06-06 12:00 → D.CATH 06-06 15:30
PROVIDERS: Family Medicine; ATTEND Internal Medicine Interventional Cardiology
DX: I25.110 Atherosclerotic heart disease of native coronary artery with unstable angina pectoris (principal); I70.213 Atherosclerosis of native arteries of extremities with intermittent claudication, bilateral legs
CPT/HCPCS: C9600 ×3; 93458

== ENCOUNTER 2018-09-03 09:36 | Outpatient (CLI) | payer OTHER ==
[~2018-09-03] VITALS: Ht 170.2 cm; Wt 80.1 kg
--- NOTE | ~2018-09-03 | HEMODYNAMI ---
PATIENT:WILEY DE LEON MEDICAL RECORD: [id number] : 70 [address] [id number] ADMISSION DATE: 09/03/18 Generatedon:09/04/201813:15 Patient name: WILEY DE LEON Patient #: [id number] SSN: : 1970 Date of study: 09/04/2018 Page: Of Hemodynamic Procedure Report Patient Data Patient Demographics Procedure consent was obtained First Name: WILEY Gender: Female Last Name: MOISES : 1970 Patient #: [id number] Age: 48 year(s) Race: Black Additional ID: [id number] Contact details Address: [address] [place] [address] State: [place] City: [place] Zip code: [address] Past Medical History Allergies: No known allergies Admission Admission Data Admission Date: 09/03/2018 Admission Time: 9:36 Room #: [facility] Lab Results Lab Result Date: 09/04/2018 Lab Result Time: 9:51 Biochemistry Name Units Result Min Max BUN mg/dl 12 --(-*--)-- 7 18 Creatinine mg/dl 0.9 --(-*--)-- 0.6 1.3 CBC Name Units Result Min Max Hematocrit % 42.5 --(*---)-- 42 54 Hemoglobin g/dl 15.1 --(-*--)-- 13.5 17.5 Procedure Procedure Types Cath Procedure Diagnostic Procedure LHC [facility] w/Coronaries FFR/IVUS FFR Initial PCI Procedure Coronary Stent Coronary Stent Initial Procedure Description Procedure Date Procedure Date: 09/04/2018 Procedure Start Time: 12:52 Procedure End Time: 13:13 Procedure Staff Name Function aKi David MD Performing Physician Sukhdev Moon RT Monitor Shira Poole RT Scrub Donna Hernandez RN Nurse Procedure Data Cath Procedure Fluoroscopy Diagnostic fluoroscopy Total fluoroscopy Time: 3.1 time: 3.1 min min Diagnostic fluoroscopy Total fluoroscopy dose: 400 dose: 400 mGy mGy Contrast Material Contrast Material Type Amount (ml) Isovue 300 73 Entry Location Entry Primary Successful Side Size Upsize Upsize Entry Closure Succes sful Closure Location (Fr) 1 (Fr) 2 (Fr) Remarks Device Remarks Femoral Right 6 Fr Exoseal artery Short Estimated blood loss: 10 ml Diagnostic catheters Device Type Used For End Catheter Placement MULTIPACK Pigtail 5 Fr Procedure catheter MULTIPACK JL 4.0 5Fr Procedure catheter MULTIPACK 3DRC 5Fr Procedure catheter Procedure Complications No complications Procedure Medications Medication Administration Route Dosage Versed I.V. 2 mg Fentanyl I.V. 50 mcg 0.9% NaCl I.V. 100 ml/hr Oxygen etCO2 Nasal cannula 2 l/min Lidocaine 2% added to field 20 Heparin Flush Bag added to field 2 bags (1000units/500ml NS) Versed I.V. 2 mg Fentanyl I.V. 50 mcg Fentanyl I.V. 50 mcg Versed I.V. 2 mg Fentanyl I.V. 50 mcg Heparin Bolus I.V. 4000 units Hemodynamics Rest HGB: 15.1 (g/dl) Heart Rate: 54 (bpm) Snapshots Pre Cath Intra NCS Post Cath Vital Signs Time Heart Resp SPO2 etCO2 NIBP (mmHg) Rhythm Pain Sedation Rate (ipm) (%) (mmHg) Status Level (bpm) 12:32:55 61 17 100 30 155/82(102) NSR 0 (11) 10(A) , No pain 12:37:11 70 18 100 26.9 121/98(109) NSR 0 (11) 10(A) , No pain 12:41:27 67 13 100 25.4 109/72(101) NSR 0 (11) 10(A) , No pain 12:46:26 65 13 100 34.4 Measuring NSR 0 (11) 10(A) , No pain 12:49:30 67 13 100 35.2 149/66(100) NSR 0 (11) 10(A) , No pain 12:53:52 68 13 100 34.4 125/63(94) NSR 0 (11) 10(A) , No pain 12:58:52 82 19 100 35.2 Measuring NSR 0 (11) 10(A) , No pain 13:00:05 67 13 100 35.9 152/68(122) NSR 0 (11) 10(A) , No pain 13:04:21 62 13 100 29.9 145/76(95) NSR 0 (11) 10(A) , No pain 13:08:46 62 12 100 36.7 145/72(95) NSR 0 (11) 10(A) , No pain 13:13:26 9 99 34.4 105/51(86) NSR 0 (11) 10(A) , No pain Medications Time Medication Route Dose Verified Delivered Reason Notes Effectiveness by by 12:48:36 Versed I.V. 2 mg Kai Donna for sedation Joann Hernandez RN 12:48:41 Fentanyl I.V. 50 Kai Donna for sedation mcg Joann Hernandez RN 12:48:59 0.9% NaCl I.V. 100 Kai Donna used for ml/hr Joann Hernandez position classification specialist 12:49:07 Oxygen etCO2 2 Kai Donna used for Nasal l/min Joann Hernandez procedure cannula RN 12:49:12 Lidocaine 2% added 20ml Kai Kai for local to vial Joann David MD anesthetic field 12:49:16 Heparin Flush added 2 Kai Kai used for Bag to bags Joann David MD procedure (1000units/500ml field NS) 12:53:16 Versed I.V. 2 mg Kai Kai for sedation Joann David MD 12:53:24 Fentanyl I.V. 50 Kai Kai for sedation mcg Joann David MD 12:58:35 Fentanyl I.V. 50 Kai Kai for sedation mcg Joann David MD 12:58:44 Versed I.V. 2 mg Kai Kai for sedation Joann David MD 13:04:50 Fentanyl I.V. 50 Kai Kai for sedation mcg Joann David MD 13:08:12 Heparin Bolus I.V. 4000 Kai Donna for verif ied units Joann Hernandez anticoagulation with Dr. SHANAE David Procedure Log Time Note 12:11:42 Signed procedure consent form obtained from patient. 12:12:11 Time tracking: Regular hours (M-F 7:00 - 5:00) 12:12:15 Plan of Care:Hemodynamics will remain stable., Cardiac rhythm will remain stable., Comfort level will be maintained., Respiratory function will remain adequate., Patient/ family verbilizes understanding of procedure., Procedure tolerated without complication., Recovers from procedure without complications.. 12:12:19 Procedure status Urgent 12:12:22 Sukhdev Moon RT(R) sent for patient. Start room use. 12:30:51 Patient received from Med II to CCL 1 Alert and oriented. Tansferred to table in Supine position. 12:30:52 Warm blankets applied, and tanesha hugger turned on for patient comfort. 12:30:53 Correct patient and procedure confirmed by team. 12:30:53 ECG and BP/O2 sat monitors applied to patient. 12:31:22 Vital chart was started 12:35:45 Baseline sample Acquired. 12:35:47 Rhythm: sinus rhythm 12:35:49 Full Disclosure recording started 12:35:56 H&P Date Dictated: 09/03/2018 Within 30 days and on chart.. 12:35:58 Pre-procedure instructions explained to patient. 12:35:58 Pre-op teaching completed and patient verbalized understanding. 12:36:01 Family in waiting room. 12:36:03 Patient NPO since Midnight. 12:36:07 Patient allergic to No known allergies 12:36:11 Is the patient allergic to Iodine/contrast media? No. 12:36:22 Is patient on blood thinner?Yes 12:36:24 ACC The patient was administered the following blood thiners within the last 24 hours: ACCPlavix 12:36:26 Patient diabetic? No. 12:36:29 Previous problem with sedation/anesthesia? No ? 12:36:31 Snore? Yes 12:36:33 Sleep apnea? No 12:36:33 Deviated septum? No 12:36:34 Opens mouth fully? Yes 12:36:35 Sticks out tongue? Yes 12:36:37 Airway obstruction? No ? 12:36:40 Dentures? No ? 12:36:43 Pre procedure: right dorsailis pedis pulse 1+ Palpable, but thready & weak; easily obliterated 12:36:45 Patient pain scale 0/10 .. 12:36:49 IV patent on arrival in left forearm with 0.9% NaCl at [facility]. 12:37:34 Lab Result : BUN 12 mg/dl 12:37:34 Lab Result : Creatinine 0.9 mg/dl 12:37:34 Lab Result : Hemoglobin 15.1 g/dl 12:37:34 Lab Result : Hematocrit 42.5 % 12:37:35 Lab results completed and on chart. 12:37:37 Right groin area was prepped with chlora-prep and draped in sterile fashion 12:37:38 Alarms reviewed by R. N. 12:37:39 Sharps counted by scrub and verified by R.N. 12:37:43 ACIST Syringe (54594) opened to sterile field. 12:37:43 Bag Decanter (2002S) opened to sterile field. 12:37:43 Medline Cath Pack ([id number]) opened to sterile field. 12:37:45 ACIST Manifold (14742) opened to sterile field. 12:37:45 ACIST Hand Control (78252) opened to sterile field. 12:37:46 DIAGNOSTIC Multipack 5Fr catheter set ([id number]) opened to sterile field. 12:37:46 Tegaderm 4 x 4 (1626W) opened to sterile field. 12:37:48 EMERALD Guide Wire (490-993) opened to sterile field. 12:38:03 SHEATH 6FR [place] (IWF538) opened to sterile field. 12:38:04 INFLATOR Merit BasixCompak (HH0926) opened to sterile field. 12:42:22 Zero performed for pressure channel P1 12:47:06 Physician arrived 12:47:07 --------ALL STOP TIME OUT------ 12:47:07 Final Timeout: patient, procedure, and site verified with staff and physician. All members of the team are in agreement. 12:47:09 Right groin site verified by team. 12:47:18 Fire Safety Assessment: A--An alcohol-based skin anteseptic being used preoperatively., C--Open oxygen or nitrous oxide is being used., D--An ESU, laser, or fiber-optic light is being used. 12:47:23 Physical assessment completed. ASA score P 2 - A patient with mild systemic disease as per Kai David MD. 12:47:42 2) 60-89 Mildly reduced kidney function, and other findings (as for stage 1) point to kidney disease. 12:48:20 Maximum allowable contrast does (3.7 X eGFR X 0.75)197 ml. 12:48:23 Sedation plan: IV Moderate Sedation Medication:Versed, Fentanyl 12:48:36 Versed 2 mg I.V. was administered by Donna Hernandez RN; for sedation; 12:48:41 Fentanyl 50 mcg I.V. was administered by Donna Hernandez RN; for sedation; 12:48:59 0.9% NaCl 100 ml/hr I.V. was administered by Donna Hernandez RN; used for procedure; 12:49:07 Oxygen 2 l/min etCO2 Nasal cannula was administered by Donna Hernandez RN; used for procedure; 12:49:12 Lidocaine 2% 20ml vial added to field was administered by Kai David MD; for local anesthetic; 12:49:16 Heparin Flush Bag (1000units/500ml NS) 2 bags added to field was administered by Kai David MD; used for procedure; 12:52:29 Procedure started. 12:52:32 Local anesthetic to right femoral artery with Lidocaine 2% by Kai David MD.INITIAL ACCESS ONLY 12:53:16 Versed 2 mg I.V. was administered by Kai David MD; for sedation; 12:53:24 Fentanyl 50 mcg I.V. was administered by Kai David MD; for sedation; 12:58:07 A 6 Fr Short sheath was inserted into the Right Femoral artery 12:58:35 Fentanyl 50 mcg I.V. was administered by Kai David MD; for sedation; 12:58:44 Versed 2 mg I.V. was administered by Kai David MD; for sedation; 12:59:15 A MULTIPACK Pigtail 5 Fr catheter was advanced over the wire and used for Procedure. 12:59:26 LV gram done using LEES 12:59:29 Injector settings: Ml/sec: 10, Volume: 20, 12:59:31 LV hemodynamics recorded. 12:59:35 EF : 50 % 12:59:37 Catheter exchanged over wire. 12:59:52 A MULTIPACK JL 4.0 5Fr catheter was advanced over the wire and used for Procedure. 13:00:18 LCA angiography performed. 13:01:47 Catheter exchanged over wire. 13:01:58 A MULTIPACK 3DRC 5Fr catheter was advanced over the wire and used for Procedure. 13:02:02 RCA angiography performed. 13:03:37 Catheter removed. 13:04:01 GUIDE 6FR HS I catheter (LA6HSI) opened to sterile field. 13:04: [place] Verrata Plus pressure wire (67650D) opened to sterile field. 13:04:09 6 Fr HS I guide catheter was inserted over the wire 13:04:14 FFR/IFR wire advanced. 13:04:50 Fentanyl 50 mcg I.V. was administered by Kai David MD; for sedation; 13:05:45 Wire advanced across lesion. 13:07:17 dRCA lesion measured at 0.81 with IFR 13:08:12 Heparin Bolus 4000 units I.V. was administered by Donna Hernandez RN; for anticoagulation; verified with Dr. David 13:08:37 Pre PCI Site: [place] dLAD has 95% stenosis. 13:08:41 Place stent Inflation Number: 1 A NEO RX 3.0 x 15 stent ([id number]) was prepped and advanced across the Dist RCA . The stent was deployed at 11 GONZALEZ for 0:10 (min:sec) . 13:09:23 Stent catheter was removed intact over wire. 13:09:23 Wire removed. 13:09:24 Guide catheter removed. 13:09:33 EXOSEAL 6Fr (EX600) opened to sterile field. 13:09:45 Sheath removed intact; hemostasis achieved with Exoseal to the Right Femoral artery. 13:09:47 Procedure ended.(Physican Out) 13:10:51 Fluoroscopy time 03.10 minutes. 13:10:55 Flurop Dose total: 400 13:10:55 Fluoroscopy dose: 400 mGy 13:10:58 Contrast amount:Isovue 300 73ml. 13:11:00 Sharps counted by scrub and verified by R.N. 13:11:01 Insertion/operative site no bleeding no hematoma. 13:11:03 Post-op/insertion site Right Femoral artery dressed using a 4 x 4 and Tegaderm. 13:11:07 Post right femoral artery:stable, soft, clean and dry 13:11:08 Post Procedure Pulses reassessed and unchanged 13:11:11 Post-procedure physical assessment completed. ASA score P 2 - A patient with mild systemic disease as per Kai David MD. 13:11:15 Post procedure rhythm: unchanged. 13:11:17 Estimated blood loss: 10 ml 13:11:18 Post procedure instruction explained to patient.Patient verbalizes understanding. 13:11:19 Patient needs reinforcement of post procedure teaching. 13:11:49 Procedure type changed to Cath procedure, Diagnostic procedure, LHC, LHC w/Coronaries, FFR/IVUS, FFR Initial, PCI procedure, Coronary Stent, Coronary Stent Initial 13:12:34 Procedure and supply charges have been captured, reviewed, submitted and are correct. 13:12:36 Procedure Complication : No complications 13:12:42 FEMSTOP Gold ([id number]) opened to sterile field. 13:12:49 Femstop placed over the right femoral artery at 166 mmHg. Hemostasis achieved. 13:13:22 Vital chart was stopped 13:13:23 See physician's report for complete and final results. 13:13:25 Report given to PCU. 13:13:26 Patient transfered to PCU with Stretcher. 13:13:28 Procedure ended. 13:13:28 Full Disclosure recording stopped 13:13:31 End room use (Document Last) Intervention Summary Intervention Notes Time ActionType Lesion and Equipment Used Action# Pressure Duration Attributes 13:08:41 Place stent Dist RCA NEO RX 3.0 x 1 11 00:10 15 stent ([id number]) Device Usage Item Name Manufacture Quantity Catalog Hospital Part Current Minimal Lot# / Number Charge Number Stock Stock Serial# Code ACIST Syringe Acist 1 73755 026910 656065 734218 20 (53156) Medical Systems Inc Bag Decanter Microtek 1 2001S 962327 47294 891002 5 (2001S) Medical Inc. Medline Cath Medline 1 [id number] 037163 72985 545783 5 Pack ([id number]) ACIST Manifold Acist 1 86661 599453 627985 991807 5 (33079) Medical Systems Inc ACIST Hand Acist 1 25028 074041 275738 760988 5 Control Medical (09688) Systems Inc DIAGNOSTIC Cardinal 1 [id number] 877178 97657 183314 30 Multipack 5Fr Health catheter set (GB6005) Tegaderm 4 x 4 3M 1 1626W 397610 764106 576463 5 (1626W) EMERALD Guide Cardinal 1 502-455 089782 315365 845641 5 Wire (502-455) Health SHEATH 6FR Terumo 1 UFB580 317180 554763 402614 40 [place] (ZYC906) INFLATOR Merit Merit 1 MZ9596 980410 874184 809867 15 [facility] (AV8148) MULTIPACK Cardinal 1 529848 5 Pigtail 5 Fr Health catheter MULTIPACK JL Cardinal 1 352887 5 4.0 5Fr Health catheter MULTIPACK 3DRC Cardinal 1 650735 5 5Fr catheter Health GUIDE 6FR HS I Medtronic 1 LA6HSI 443415 36292 225407 1 catheter (LA6HSI) [place] 1 49457G 235570 521689483 099495 5 Verrata Plus pressure wire (75009H) NEO RX 3.0 x Medtronic 1 [id number] 014199 3045185 461325 5 [id number] 15 stent ([id number]) EXOSEAL 6Fr Cardinal 1 EX600 103895 751353 905313 10 (EX600) Health FEMSTOP Gold [place] 1 A47598 236617 054084 986455 5 ([id number]) Signature Audit [place] Stage Time Signature Unsigned Intra-Procedure 09/04/2018 Sukhdev Moon 1:14:57 PM RT(R) Signatures Performing Physician : Signature : Kai David MD Date : Time : Monitor : Sukhdev Moon RT Signature : Date : Time : Nurse : Donna Hernandez RN Signature : Date : Time : [facility] [place] [address]
[~2018-09-03 09:36] MED LIST changes: +BAYER CHEWABLE81 MG PO; +PLAVIX75 MG PO; +PRAVACHOL40 MG PO
[2018-09-03 09:58] LABS: BASOPHILS 1.9 % (0-2); EOSINOPHILS 0.5 % (0-7); HEMATOCRIT 42.5 % (36.0-48.0); HEMOGLOBIN 15.1 g/dL (12-16); IMMATURE GRANULOCYTES 0.2 % (0-5); LYMPHOCYTES 33.6 % (15-50); MCH 31.4 pg (26.0-34.0); MCHC 35.5 g/dL (31.0-37.0); MCV 88.4 fL (80.0-100.0); MEAN PLATELET VOLUME 9.4 fL (7.4-10.4); MONOCYTES 7.6 % (2-11); NEUTROPHILS 56.2 % (40-80); RBC 4.81 10x6/uL (4.00-5.40); WBC 12.3 10x3/uL (4.8-10.8)
[2018-09-03 10:05] LABS: PLATELET COUNT 213 10x3/uL (130-400)
[2018-09-03 10:10] LABS: ALBUMIN 3.7 g/dL (3.4-5.0); ALKALINE PHOSPHATASE 83 U/L (46-116); ALT (SGPT) 14 U/L (10-68); BILIRUBIN - TOTAL 0.23 mg/dL (0.2-1.3); CALC OSMOLALITY 271 mosm/kg (275-300); CALCIUM 8.7 mg/dL (8.5-10.1); CARBON DIOXIDE 23.5 mmol/L (21.0-32.0); CHLORIDE - SERUM 102 mmol/L (98-107); CREATININE - SERUM 0.9 mg/dL (0.6-1.3); GLUCOSE 107 mg/dL (74-106); POTASSIUM - SERUM 3.6 mmol/L (3.5-5.1); PROTEIN - SERUM 8.5 g/dL (6.4-8.2); SODIUM 136 mmol/L (136-145); UREA NITROGEN 12 mg/dL (7-18); eGFR NON AFRICAN AMERICAN 71 mL/min (90-120)
[2018-09-03 10:11] LABS: APTT 26.3 SECONDS (22.8-39.4); INR 0.99 (0.85-1.17); PROTIME 12.6 SECONDS (11.6-15.0)
[2018-09-03 10:21] LABS: CKMB 0.4 U/L (0.0-3.6); CREATINE KINASE 48 UL (21-215); MAGNESIUM - SERUM 1.7 mg/dL (1.8-2.4)
[2018-09-03 10:23] LABS: TROPONIN-I < 0.017 ng/mL (0.000-0.060)
--- NOTE | 2018-09-03 12:16 | NUR ---
PT ARRIVED TO FLOOR FROM ER WITH ER STAFF. ASSISTED PT INTO BED, VSS AND WNL. PT ANSWERS ALL QUESTIONS APPROPRIATELY. SPOUSE AT BEDSIDE. CONSENTS SIGNED FOR HEART CATH TOMORROW WITH SECOND NURSE WITNESS. DENIES ANY OTHER NEEDS AT THIS TIME. WILL CONT TO FOLLOW POC
[2018-09-03 12:17] VITALS: BP 133/66; Ht 170.2 cm; Wt 80.1 kg
[2018-09-03 16:56] LABS: CKMB 0.6 U/L (0.0-3.6); CREATINE KINASE 42 UL (21-215)
--- NOTE | 2018-09-03 19:14 | NUR ---
RECEIVED REPORT, WILL ASSUME CARE OF PT, DENIES ANY NEEDS, EXPLINED WILL BE NPO AFTER MIDNIGHT FOR CATH IN AM, BED IS LOW, SRX2, WILL CONTINUE PLAN OF CARE
[2018-09-03 20:00] VITALS: BP 100/49
--- NOTE | 2018-09-03 21:36 | NUR ---
HELD [id number], PT TOOK OWN REQUIP, PROVIDE FRESH ICE WATER, CALL LIGHT IN REACH, WILL CONTINUE PLAN OF CARE
[2018-09-03 23:30] LABS: CREATINE KINASE 36 UL (21-215)
[2018-09-03 23:54] LABS: CKMB 0.8 U/L (0.0-3.6); TROPONIN-I < 0.017 ng/mL (0.000-0.060)
--- NOTE | 2018-09-04 00:04 | NUR ---
I have reviewed this patient and I concur with the Shift Assessment completed by the Licensed Practical Nurse today this shift.
[2018-09-04 00:07] VITALS: BP 96/55
[2018-09-04 04:00] VITALS: BP 110/64
--- NOTE | 2018-09-04 07:30 | NUR ---
ASSESSMENT COMPLETED. AWAKE AND ORIENTED. TELEMERTY SHOWS SR 60. LAC SL. NPO FOR CATH TODAY. DENIES ANY NEEDS. SR UP WITH CALL LIGHT IN REACH
[2018-09-04 08:27] VITALS: BP 132/75
[2018-09-04 12:22] VITALS: BP 128/72
--- NOTE | 2018-09-04 13:12 | HP ---
PATIENT: WILEY DE LEON MEDICAL RECORD: [id number] ACCOUNT: [id number] LOCATION:[address] : 70 ADMISSION DATE: 09/03/18 PCP: NAHUM PORTILLO MD HISTORY AND PHYSICAL EXAMINATION DIAGNOSES: 1. Unstable angina, class IV. 2. Coronary artery disease. 3. Recent PTCA and stent, RCA, with significant disease to LAD. 4. Hypertension. HISTORY OF PRESENT ILLNESS: Mrs. De Leon presents with increasing unstable angina. She has a history of coronary artery disease, PTCA and stent of her RCA one month ago. At that time, she had a 95% stenosis of the LAD. Even though it was in small vessel, she has continued to have chest pain and it is in an escalating fashion. She is on aspirin and Plavix and has been compliant with the Plavix. Her EKG is with nonspecific ST-T abnormalities. She continues to have the chest pain. OVERALL IMPRESSION: Continued angina with known disease of the LAD. We will proceed with repeat coronary angiography and transcatheter revascularization of the LAD. TRANSINT:[id number] Voice Confirmation ID: [id number] DOCUMENT ID: [id number] JOSE MANUEL PIEDRA MD at 1312 CC: [id number] DICTATION DATE: 09/03/18 1133 FOREST MANAGER: 09/03/18 1216 [facility] [address] [place] [address]
--- NOTE | 2018-09-04 13:33 | NUR ---
PT BACK FROM BLENDING MACHINE OPERATOR. PT HAD 1 STENT TO THE RCA. FEM STOP TO RIGHT GROIN WITH NO BLEEDING NOTED. PPP. V/S STABLE. B/P 129/70, HR 56, RESP 18 O2 AT 96 ON ROOM AIR. AWAKE AND ORIENTED. DENIES ANY NEEDS. WILL MONITOR
--- NOTE | 2018-09-04 14:10 | NUR ---
I have reviewed this patient and I concur with the Shift Assessment completed by the Licensed Practical Nurse today this shift.
--- NOTE | 2018-09-04 15:37 | NUR ---
FEM STOP REMOVED AND DRSG APPLIED. V/S STABLE, FAMILY AT BEDSIDE.
[2018-09-04 16:44] VITALS: BP 136/68
--- NOTE | 2018-09-04 18:16 | NUR ---
UP TO BR. RIGHT GROIN SOFT WITH NO BLEEDING. DENIES ANY NEEDS.
--- NOTE | 2018-09-04 19:39 | NUR ---
ASSESSMENT COMPLETE, PT A&O, RESPERATIONS EVEN ON RA. IV TO RIGHT AC SL, SITE CLEAN AND DRY. DRSG TO RIGHT GROIN C/D/I. NO SWELLING, BLEEDING OR HEMATOMA NOTED. PT CURRENTLY DENIES PAIN OR NEEDS, BED LOW, CL IN REACH.
[2018-09-04 20:00] VITALS: BP 106/51
--- NOTE | 2018-09-04 21:15 | NUR ---
HS MEDS GIVEN WITH FRESH ICE WATER. PT DENIES PAIN OR NEEDS.
[2018-09-05] VITALS: BP 126/62
[2018-09-05 04:00] VITALS: BP 122/69
--- NOTE | 2018-09-05 05:13 | NUR ---
I have reviewed this patient and I concur with the Shift Assessment completed by the Licensed Practical Nurse today this shift.
--- NOTE | 2018-09-05 07:30 | NUR ---
ASSESSMENT COMPLETED. AWAKE AND ALERT. TELEMERTY SHOWSSB 59. LEFT AC SL. DRSG TO RIGHT GROIN DRY AND INTACT. PPP. DENIES ANY NEEDS. SR UP WITH CALL LIGHT IN REACH. WILL MONITOR
[2018-09-05 08:07] VITALS: BP 124/71
--- NOTE | 2018-09-05 10:03 | NUR ---
I have reviewed this patient and I concur with the Shift Assessment completed by the Licensed Practical Nurse today this shift.
--- NOTE | 2018-09-05 10:10 | NUR ---
PT DCD. IV DCD WITH TIP INTACT. TO PRIVATE CAR PER WHEEL CHAIR
--- NOTE | 2018-09-08 11:13 | OP ---
PATIENT NAME: WILEY DE LEON MEDICAL RECORD: [id number] :70 LOCATION:[place] ADMISSION DATE: SURGEON: JOSE MANUEL PIEDRA MD DATE OF OPERATION: 09/04/2018 PROCEDURES: 1. PTCA and stent, RCA. 2. IFR. 3. Left heart catheterization. 4. Selective coronary angiography. 5. Left ventriculogram. INDICATION: Unstable angina and coronary artery disease. PROCEDURE IN DETAIL: After informed consent was obtained with detailed description of risks and benefits as well as alternative therapies, the patient elected to proceed with angiogram and angioplasty. The right femoral area was prepped and draped in normal sterile fashion. The right femoral artery was cannulated via modified Seldinger technique with placement of 6-Andor[place] sheath. All catheters were exchanged through this sheath. FINDINGS: Left ventriculogram performed in standard 30-degree LEES view reveals good cardiac wall motion. Ejection fraction is 60%. SELECTIVE CORONARY ANGIOGRAPHY: 1. Left main is with no significant angiographic disease. 2. Left anterior descending has previously placed stents. These are widely patent with no significant restenosis. No disease elsewise throughout the LAD or its branches. 3. Left circumflex has a previously placed stent. This is widely patent with no significant restenosis. No disease elsewise throughout the circumflex or its branches. 4. Right coronary has previously placed stents. These are widely patent with no significant restenosis; however, there is a new 80+ percent stenosis in the mid distal vessel and IFR is significantly abnormal. PTCA AND STENT OF THE RCA: Stent used was 3.0 x 15 mm [place]. Result was 0% residual stenosis. OVERALL IMPRESSION: Successful PTCA and stent of the RCA, going from 80% initial stenosis with abnormal IFR to 0% residual. TRANSINT:[id number] Voice Confirmation ID: [id number] DOCUMENT ID: [id number] JOSE MANUEL PIEDRA MD at 1113 CC: [id number] DICTATION DATE: 09/04/18 1554 MECHANIC INDUSTRIAL TRUCK: 09/04/18 1609 DEP CLI 09/05/18 [facility] [address] [place] [address]
== END 2018-09-05 10:12 | disposition home or self-care (01) ==
LOC: D.ER 09:36 → D.OPS 09:36 → D.M2 09:36 → EDSTATUS 11:09 → D.OPS 09-05 10:12
PROVIDERS: Family Medicine; ATTEND Internal Medicine Interventional Cardiology
DX: I25.110 Atherosclerotic heart disease of native coronary artery with unstable angina pectoris (principal); Z95.5 Presence of coronary angioplasty implant and graft; Z01.812 Encounter for preprocedural laboratory examination

== ENCOUNTER → 2018-10-18 17:11 | Outpatient (CLI) | payer OTHER ==
[2018-09-03 12:17] VITALS: BMI 28.2
[2018-10-18 18:09] LABS: CHOL - HDL RATIO 2.4 ratio (2.3-4.1); LDL-HDL RATIO 1.1 ratio (1.5-3.5)
== END | disposition home or self-care (01) ==
LOC: D.LABREF 17:11
PROVIDERS: ATTEND Internal Medicine Interventional Cardiology
DX: I25.10 Atherosclerotic heart disease of native coronary artery without angina pectoris (principal)

== ENCOUNTER 2018-11-28 06:20 | Day surgery (SDC) | payer OTHER ==
[2018-11-27 15:37] LABS: CALC OSMOLALITY 273 mosm/kg (275-300); CALCIUM 8.7 mg/dL (8.5-10.1); CARBON DIOXIDE 28.9 mmol/L (21.0-32.0); CHLORIDE - SERUM 101 mmol/L (98-107); CREATININE - SERUM 0.8 mg/dL (0.6-1.3); GLUCOSE 96 mg/dL (74-106); POTASSIUM - SERUM 3.9 mmol/L (3.5-5.1); SODIUM 138 mmol/L (136-145); UREA NITROGEN 8 mg/dL (7-18); eGFR NON AFRICAN AMERICAN 81 mL/min (90-120)
[2018-11-27 15:40] LABS: APTT 30.8 SECONDS (22.8-39.4); INR 0.9 (0.85-1.17); PROTIME 11.7 SECONDS (11.6-15.0)
[2018-11-27 15:41] LABS: HEMATOCRIT 40.9 % (36.0-48.0); HEMOGLOBIN 13.5 g/dL (12-16); MCH 30.6 pg (26.0-34.0); MCV 92.7 fL (80.0-100.0); MEAN PLATELET VOLUME 9.3 fL (7.4-10.4); PLATELET COUNT 200 10x3/uL (130-400); RBC 4.41 10x6/uL (4.00-5.40); RDW 12.8 % (11.5-14.5); WBC 7.6 10x3/uL (4.8-10.8)
[2018-11-27 16:37] LABS: BASOPHILS 1 % (0-2); LYMPHOCYTES 63 % (15-50); NEUTROPHILS 36 % (40-80); PLATELET ESTIMATE NORMAL
[~2018-11-28] VITALS: Ht 170.2 cm; Wt 83.9 kg
[~2018-11-28 06:20] MED LIST changes: +LOVENOX60 MG/0.6 SC; +MERIBIN5 MG PO; +VITAMIN D10000 UNI1 PO
[2018-11-28 07:17] VITALS: Ht 170.2 cm; Wt 83.9 kg
[2018-11-28] MEDS ORDERED: HYDROCODON-ACE1 EA10 PO (10:19)
--- NOTE | 2018-11-28 12:45 | NUR ---
PT DC INSTRUCTIONS REVIEWED AT THIS TIME, PT VERBALIZES UNDERSTANDING AND AGREES. PT IV REMOVED AT THIS TIME, INTACT, NO REDNESS OR SWELLING NOTED AT SITE. NAD NOTED.
--- NOTE | 2018-11-28 13:00 | NUR ---
1115 UP TO BATHROOM VOIDED. AMBULATORY WITHOUT DIFFICULTY. Talat PETERS R.N.
--- NOTE | 2018-11-28 13:02 | NUR ---
PT LEAVING OPS AT THIS TIME VIA WC. NO ACUTE DISTRESS NOTED.
--- NOTE | 2018-12-07 13:49 | OP ---
PATIENT NAME: WILEY DE LEON MEDICAL RECORD: [id number] :70 LOCATION:[place] ADMISSION DATE: SURGEON: VON ARCHER MD DATE OF OPERATION: 11/28/2018 PREOPERATIVE DIAGNOSES: 1. Hidradenitis. 2. Lupus. 3. Coronary artery disease. POSTOPERATIVE DIAGNOSES: 1. Hidradenitis. 2. Lupus. 3. Coronary artery disease. PROCEDURE IN DETAIL: 1. Left upper quadrant excision of 5 cm hidradenitis lesion. 2. Excision of 4 cm left axillary hidradenitis lesion. SURGEON: Von Archer MD REPORT OF PROCEDURE: The patient's left upper abdomen and left axilla were prepped and draped in sterile fashion. The left upper quadrant was approached first. The patient had a long fluctuant area of tissue that was chronically inflamed in the left upper quadrant. An ovoid incision was made transversely around this incorporating all of that tissue. We came underneath this lesion through the subcutaneous fatty tissue and was able to completely excise it and sent this off for permanent specimen. We irrigated out the wound with normal saline and bleeding was stopped with electrocautery. The subcutaneous tissues were reapproximated with interrupted 3-0 Vicryl and the skin was closed with shantell. A 10 mL of 0.25% Marcaine with epinephrine was infused into the tissue around this. We then approached the left axilla. There was 4 cm area of chronic inflammation and pitting. An ovoid incision was made around this and electrocautery was used to dissect through the subcutaneous tissues, incorporating all of this wound. The wound was then irrigated out with normal saline and infused with 10 mL of 0.25% Marcaine with epinephrine. The subcutaneous tissues were reapproximated with interrupted 3-0 Vicryl and the skin was closed with running subcutaneous 5-0 Monocryl. COMPLICATIONS: None. CONDITION: Stable. ANESTHESIA: General endotracheal and local. BLOOD LOSS: 30 mL. TRANSINT:[id number] Voice Confirmation ID: [id number] DOCUMENT ID: [id number] OPERATIVE REPORT [id number] WILEY DE LEON VON ARCHER MD at 1349 CC: NAHUM PORTILLO MD [id number] DICTATION DATE: 11/28/18 1023 SYSTEMS ANALYSIS MANAGER: 11/28/18 1040 [facility] 11/28/18 [facility] [address] [id number]
== END 2018-11-28 13:02 | disposition home or self-care (01) ==
LOC: D.OPS 06:20
PROVIDERS: Anesthesiology; ATTEND Surgery
DX: L73.2 Hidradenitis suppurativa (principal); M32.9 Systemic lupus erythematosus, unspecified; I25.10 Atherosclerotic heart disease of native coronary artery without angina pectoris

== ENCOUNTER → 2019-02-21 18:03 | Outpatient (CLI) | payer OTHER ==
[2018-11-28 07:17] VITALS: BMI 29.0
[~2019-02-21 18:03] MED LIST changes: +HYDROCODON-ACE1 EA10 PO
[2019-02-21 18:54] LABS: CHOL - HDL RATIO 2.3 ratio (2.3-4.1); LDL-HDL RATIO 1.1 ratio (1.5-3.5)
== END | disposition home or self-care (01) ==
LOC: D.LABREF 18:03
PROVIDERS: ATTEND Internal Medicine Interventional Cardiology
DX: E78.5 Hyperlipidemia, unspecified (principal); I25.10 Atherosclerotic heart disease of native coronary artery without angina pectoris

== ENCOUNTER → 2019-09-27 07:48 | Outpatient (CLI) | payer OTHER ==
[2018-11-28 07:17] VITALS: BMI 29.0
== END | disposition home or self-care (01) ==
LOC: D.HCCARDIO 07:48
PROVIDERS: ATTEND Internal Medicine Cardiovascular Disease
DX: I20.9 Angina pectoris, unspecified (principal)

== ENCOUNTER 2019-10-04 12:10 | Day surgery (SDC) | payer OTHER ==
[~2019-10-04] VITALS: Ht 167.6 cm; Wt 63.6 kg
--- NOTE | ~2019-10-04 | HEMODYNAMI ---
PATIENT:WILEY DE LEON MEDICAL RECORD: [id number] : 70 LOCATION:D.CAT ADMISSION DATE: 10/04/19 Generatedon:10/04/201914:51 Patient name: WILEY DE LEON Patient #: [id number] SSN: : 1970 Date of study: 10/04/2019 Page: Of Hemodynamic Procedure Report Patient Data Patient Demographics Procedure consent was obtained First Name: WILEY Gender: Female Last Name: MOISES : 1970 [facility] Initial: MALIA Age: 49 year(s) Patient #: [id number] Race: Additional ID: [id number] Contact details Address: [address] [place] [address] State: [place] City: [place] Zip code: [address] Past Medical History Allergies Allergen Reaction Date Comments Reported Other allergy 10/04/2019 NKA Admission Admission Data Admission Date: 10/04/2019 Admission Time: 12:10 Arrival Date: 10/04/2019 Arrival Time: 0:00 Height (in.): 67 BSA: 1.97 (m2) Height (cm.): 170.18 BMI: 29.29 (kg/m2) Weight (lbs.): 187 Weight (kg.): 84.82 Lab Results Lab Result Date: 10/04/2019 Lab Result Time: 0:00 Biochemistry Name Units Result Min Max BUN mg/dl 10 --(-*--)-- 7 18 Creatinine mg/dl 0.7 --(*---)-- 0.6 1.3 eGFR ml/min 90 --(*---)-- 90 120 NONAFRICAN CBC Name Units Result Min Max Hematocrit % 42.4 --(*---)-- 42 54 Hemoglobin g/dl 14.2 --(*---)-- 13.5 17.5 Procedure Procedure Types Cath Procedure Diagnostic Procedure [facility] LH w/Coronaries Sedation Charges Moderate Sedation up to 30 minutes PCI Procedure PTCA PTCA Initial Hemochron ACT Test Procedure Description Procedure Date Procedure Date: 10/04/2019 Procedure Start Time: 14:11 Procedure End Time: 14:49 Procedure Staff Name Function Jason Hodges MD Performing Physician Jovita Jordan RT Scrub Leatha Ro RN Nurse Jillian Medina RT Monitor Procedure Data Cath Procedure Fluoroscopy Diagnostic fluoroscopy Total fluoroscopy Time: 2.8 time: 2.8 min min Diagnostic fluoroscopy Total fluoroscopy dose: 461 dose: 461 mGy mGy Contrast Material Contrast Material Type Amount (ml) Isovue 300 75 Entry Location Entry Primary Successful Side Size Upsize Upsize Entry Closure Succes sful Closure Location (Fr) 1 (Fr) 2 (Fr) Remarks Device Remarks Femoral Right 5 Fr 6 Fr Exoseal artery Short Estimated blood loss: 5 ml Diagnostic catheters Device Type Used For End Catheter Placement MULTIPACK JL 4.0 5Fr Left Coronary catheter Angiography MULTIPACK 3DRC 5Fr Right Coronary catheter Angiography MULTIPACK Pigtail 5 Fr LV Angiography catheter Procedure Complications No complications Procedure Medications Medication Administration Route Dosage Oxygen etCO2 Nasal cannula 2 l/min Lidocaine 2% added to field 20 Heparin Flush Bag added to field 2 bags (1000units/500ml NS) 0.9% NaCl I.V. 100 ml/hr Versed I.V. 2 mg Fentanyl I.V. 100 mcg Versed I.V. 2 mg Fentanyl I.V. 50 mcg Versed I.V. 2 mg Fentanyl I.V. 50 mcg Versed I.V. 2 mg Fentanyl I.V. 50 mcg Versed I.V. 2 mg Fentanyl I.V. 50 mcg Heparin Bolus I.V. 4000 units Hemodynamics Rest BSA: 1.97 (m2) HGB: 14.2 (g/dl) O2 Consumption: Estimated: 189.37 (ml/min) O2 Co nsumption indexed: Estimated:96.13 (ml/min/m) Heart Rate: 64 (bpm) Pressure Samples Time Site Value (mmHg) Purpose Heart Use Rate(bpm) 14:37 LV 92/-12,-12 Snapshot 68 Gradients Valve Time Site Site Mean SEP/DFP Peak To Heart Use 1 2 (mmHg) (sec/min) Peak Rate (mmHg) (bpm) Aortic 14:37 LV AO 74 Snapshots Pre Cath Intra NCS Post Cath Vital Signs Time Heart Resp SPO2 etCO2 NIBP (mmHg) Rhythm Pain Sedation Rate (ipm) (%) (mmHg) Status Level (bpm) 13:49:48 60 13 100 0 117/78(93) NSR 0 (11) 10(A) , No pain 13:53:56 62 28 100 30.6 132/68(116) NSR 0 (11) 10(A) , No pain 13:58:08 58 20 100 32.1 140/73(114) NSR 0 (11) 10(A) , No pain 14:02:24 64 31 100 30.6 138/73(100) NSR 0 (11) 10(A) , No pain 14:07:19 64 17 99 35.1 141/72(120) NSR 0 (11) 10(A) , No pain 14:11:37 66 16 97 33.6 123/66(88) NSR 0 (11) 10(A) , No pain 14:15:49 63 12 98 36.7 116/65(89) NSR 0 (11) 10(A) , No pain 14:20:58 62 12 99 34.4 126/62(86) NSR 0 (11) 10(A) , No pain 14:25:10 63 19 99 33.6 126/65(88) NSR 0 (11) 10(A) , No pain 14:30:16 61 22 100 35.1 132/70(105) NSR 0 (11) 9(A) , No pain 14:34:28 64 13 100 35.9 119/62(86) NSR 0 (11) 9(A) , No pain 14:38:37 64 13 100 36.6 127/64(94) NSR 0 (11) 9(A) , No pain 14:42:53 68 13 100 38.1 109/58(82) NSR 0 (11) 9(A) , No pain 14:47:59 64 15 100 36.6 121/67(93) NSR 0 (11) 10(A) , No pain Medications Time Medication Route Dose Verified Delivered Reason Notes Effectiveness by by 13:52:45 Oxygen etCO2 2 Jason Hectorie used for Nasal l/min [facility] Navid oR pony ride operator cannula 13:52:53 Lidocaine 2% added 20ml Jason Gomez for local to vial [facility] Navid Hodges anesthetic field MD GRANADOS 13:53:00 Heparin Flush added 2 Jason Buffie used for Bag to bags St Navid Ro RN procedure (1000units/500ml field GRANADOS NS) 13:53:08 0.9% NaCl I.V. 100 Jason Buffie Per physician ml/hr [facility] Navid Ro RN, MD 14:11:28 Versed I.V. 2 mg Jason Buffie for sedation [facility] Navid Ro RN, MD 14:11:33 Fentanyl I.V. 100 Jsaon Buffie for sedation mcg [facility] Navid Ro RN, MD 14:16:38 Versed I.V. 2 mg Jason Buffie for sedation St Navid Ro RN, MD 14:16:46 Fentanyl I.V. 50 Jason Buffie for sedation mcg [facility] Navid Ro RN, MD 14:21:18 Versed I.V. 2 mg Jason Buffie for sedation St Navid Ro RN, MD 14:21:22 Fentanyl I.V. 50 Jason Buffie for sedation [facility] Ro RN, MD 14:27:53 Versed I.V. 2 mg Jason Buffie for sedation [facility] Navid Ro RN, MD 14:27:58 Fentanyl I.V. 50 Jason Buffie for sedation [facility] Nav[facility] Ro RN, MD 14:35:36 Versed I.V. 2 mg Jason Buffie for sedation St Navid Ro RN, MD 14:35:39 Fentanyl I.V. 50 Jason Buffie for sedation [facility] Nav[facility] Ro RN, MD 14:39:20 Heparin Bolus I.V. 4000 Jason Buffie for verif ied units St Navid Ro RN anticoagulation with dr MD naidu Procedure Log Time Note 13:16:17 Informed consent obtained and on chart 13:17:49 Arrival Date: 10/04/2019 12:00:00 AM 13:18:00 Procedure Status Elective Heart Cath (OP). 13:18:02 Time tracking: Regular hours (M-F 7:00 - 5:00) 13:18:10 Plan of Care:Hemodynamics will remain stable., Cardiac rhythm will remain stable., Comfort level will be maintained., Respiratory function will remain adequate., Patient/ family verbilizes understanding of procedure., Procedure tolerated without complication., Recovers from procedure without complications.. 13:19:57 Patient allergic to Other allergyNKA 13:21:26 Patient Height : 67 inches 13:21:44 Patient Weight : 187 lbs 13:32:03 Leatha Ro RN sent for patient. Start room use. 13:32:23 H&P Date Dictated: 10/04/2019 H&P Addendum completed by physician on day of procedure. (MUST COMPLETE FOR ALL OUTPATIENTS), New H&P dictated by physician.. 13:33:18 Stress Test: yes; abnormal ANTERIOR WALL 13:33:36 Use device set Femoral Dx 13:33:38 ACIST Syringe (61387) opened to sterile field. 13:33:39 Bag Decanter (2002S) opened to sterile field. 13:33:40 Medline Cath Pack ([id number]) opened to sterile field. 13:33:42 ACIST Hand Control (86801) opened to sterile field. 13:33:43 ACIST Manifold (46623) opened to sterile field. 13:33:48 DIAGNOSTIC Multipack 5Fr catheter set ([id number]) opened to sterile field. 13:33:49 Tegaderm 4 x 4 (1626W) opened to sterile field. 13:33:51 SHEATH 5FR Monroe (VIO082) opened to sterile field. 13:33:52 EMERALD Guide Wire (093-910) opened to sterile field. 13:36:14 Lab Result : BUN 10 mg/dl 13:36:14 Lab Result : Hemoglobin 14.2 g/dl 13:36:14 Lab Result : Hematocrit 42.4 % 13:36:14 Lab Result : Creatinine 0.7 mg/dl 13:36:14 Lab Result : eGFR NONAFRICAN 90 ml/min 13:38:39 Risk of Mortality: 0.1 13:38:43 Risk of blood transfusion: 0.1 13:38:46 Risk of EVONNE: 0.1 13:38:52 Lab results completed and on chart. 13:43:01 Is patient on blood thinner?Yes 13:43:06 ACC The patient was administered the following blood thiners within the last 24 hours: ACCPlavix 13:43:35 Patient received from Pre/Post Procedure Room to CCL 2 Alert and oriented. Tansferred to table in Supine position. 13:43:37 Warm blankets applied, and tanesha hugger turned on for patient comfort. 13:43:38 Correct patient and procedure confirmed by team. 13:43:38 ECG and BP/O2 sat monitors applied to patient. 13:44:27 Pre-procedure instructions explained to patient. 13:44:28 Pre-op teaching completed and patient verbalized understanding. 13:44:30 Family in patients room. 13:44:33 Patient NPO since Midnight. 13:44:41 Is the patient allergic to Iodine/contrast media? No. 13:44:45 Patient diabetic? No. 13:44:51 Patient not . Patient has had hysterectomy. 13:44:53 ----Pre-sedation anethsthesia assessment.---- 13:44:57 Previous problem with sedation/anesthesia? No ? 13:45:03 Snore? Yes 13:45:05 Sleep apnea? No 13:45:08 Deviated septum? Unknown 13:45:10 Opens mouth fully? Yes 13:45:12 Sticks out tongue? Yes 13:45:16 Airway obstruction? No ? 13:45:21 Dentures? No ? 13:45:26 Pre procedure: right dorsailis pedis pulse 2+ Normal; easily identifiable; not easily obliterated 13:45:40 IV patent on arrival in left forearm with 0.9% NaCl at [facility]. 13:48:51 Vital chart was started 13:52:45 Oxygen 2 l/min etCO2 Nasal cannula was administered by Leatha Ro RN; used for procedure; Verbal order read back and verified. 13:52:53 Lidocaine 2% 20ml vial added to field was administered by Jason Hodges MD; for local anesthetic; Verbal order read back and verified. 13:53:00 Heparin Flush Bag (1000units/500ml NS) 2 bags added to field was administered by Leatha Ro RN; used for procedure; Verbal order read back and verified. 13:53:08 0.9% NaCl 100 ml/hr I.V. was administered by Leatha Ro RN; Per physician; Verbal order read back and verified. 14:10:39 Physician arrived 14:10:39 --------ALL STOP TIME OUT------ 14:10:52 Right groin area was prepped with chlora-prep and draped in sterile fashion 14:10:53 Alarms reviewed by RDejon N. 14:10:53 Sharps counted by scrub and verified by R.N. 14:10:56 Final Timeout: patient, procedure, and site verified with staff and physician. All members of the team are in agreement. 14:11:00 Right groin site verified by team. 14:11:05 Fire Safety Assessment: A--An alcohol-based skin anteseptic being used preoperatively., C--Open oxygen or nitrous oxide is being used., D--An ESU, laser, or fiber-optic light is being used. 14:11:13 Physical assessment completed. ASA score P 3 - A patient with severe systemic disease as per Jason Hodges MD. 14:11:18 1) 90+ Normal kidney functon but urine findings or structural abnormalities or genetic trait point to kidney disease. 14:11:21 Maximum allowable contrast dose (3.7 X eGFR X 0.75)250 ml. 14:11:25 Sedation plan: IV Moderate Sedation Medication:Versed, Fentanyl 14:11:28 Versed 2 mg I.V. was administered by Leatha Ro RN; for sedation; Verbal order read back and verified. 14:11:33 Fentanyl 100 mcg I.V. was administered by Leatha Ro RN; for sedation; Verbal order read back and verified. 14:11:33 Procedure started. 14:11:34 Full Disclosure recording started 14:11:38 Local anesthetic to right femoral artery with Lidocaine 2% by Jason Hodges MD.INITIAL ACCESS ONLY 14:12:45 Baseline sample Acquired. 14:12:49 Rhythm: sinus rhythm 14:16:38 Versed 2 mg I.V. was administered by Leatha Ro RN; for sedation; Verbal order read back and verified. 14:16:46 Fentanyl 50 mcg I.V. was administered by Leatha Ro RN; for sedation; Verbal order read back and verified. 14:17:44 difficulty gaining right femoral access; prepping left femoral 14:21:18 Versed 2 mg I.V. was administered by Leatha Ro RN; for sedation; Verbal order read back and verified. 14:21:22 Fentanyl 50 mcg I.V. was administered by Leatha Ro RN; for sedation; Verbal order read back and verified. 14:27:53 Versed 2 mg I.V. was administered by Leatha Ro RN; for sedation; Verbal order read back and verified. 14:27:58 Fentanyl 50 mcg I.V. was administered by Leatha Ro RN; for sedation; Verbal order read back and verified. 14:29:08 Local anesthetic to left femerol artery with Lidocaine 2% by Jason Hodges MD.ADDITIONAL ACCESS 14:33:12 A 5 Fr sheath was inserted into the Right Femoral artery 14:33:35 A MULTIPACK JL 4.0 5Fr catheter was advanced over the wire and used for Left Coronary Angiography. 14:33:40 LCA angiography performed. 14:33:43 Injector settings: Ml/sec: 3, Volume: 6, 14:34:51 Catheter removed. 14:34:56 A MULTIPACK 3DRC 5Fr catheter was advanced over the wire and used for Right Coronary Angiography. 14:35:00 RCA angiography performed. 14:35:03 Injector settings: Ml/sec: 3, Volume: 6, 14:35:36 Versed 2 mg I.V. was administered by Leatha Ro RN; for sedation; Verbal order read back and verified. 14:35:39 Fentanyl 50 mcg I.V. was administered by Leatha Ro RN; for sedation; Verbal order read back and verified. 14:36:18 Catheter removed. 14:36:22 A MULTIPACK Pigtail 5 Fr catheter was advanced over the wire and used for LV Angiography. 14:36:43 GUIDE 6FR XBLAD 3.5 catheter ([id number]) opened to sterile field. 14:36:44 WHISPER 300cm guide wire ([id number]) opened to sterile field. 14:36:44 INFLATOR Merit BasixCompak (BY4794) opened to sterile field. 14:36:45 SHEATH 6FR Monroe (CEN243) opened to sterile field. 14:37:21 LV hemodynamics recorded. 14:37:22 LV gram done using LEES 14:37:24 Injector settings: Ml/sec: 5, Volume: 15, 14:37:38 EF : 55 % 14:37:44 Catheter removed. 14:37:44 Proceeding to intervention. 14:37:52 Sheath upsized to a 6 Fr Short. 14:37:56 ACC Pre-intervention GINNA Flow is 3. 14:38:11 Pre PCI Site: [place] pLAD has 90% stenosis. 14:38:44 6 Fr xblad 3.5 guide catheter was inserted over the wire 14:39:20 Heparin Bolus 4000 units I.V. was administered by Leatha Ro RN; for anticoagulation; verified with dr naidu Verbal order read back and verified. 14:40:17 whisper wire advanced. 14:40:19 Wire advanced across lesion. 14:44:40 Inflate balloon Inflation number: 1 A EUPHORA 3.0 x 20 Balloon ([id number]) was prepped and advanced across the Prox LAD 90, then inflated to 6 GONZALEZ for 0:30 (min:sec) 0. 14:44:48 Stent catheter was removed intact over wire. 14:44:49 Wire removed. 14:44:49 Guide catheter removed. 14:45:10 EXOSEAL 6Fr (EX600) opened to sterile field. 14:46:14 Sheath removed intact; hemostasis achieved with Exoseal to the Right Femoral artery. 14:46:16 Procedure ended.(Physican Out) 14:46:26 Fluoroscopy time 02.80 minutes. 14:46:30 Flurop Dose total: 461 14:46:30 Fluoroscopy dose: 461 mGy 14:46:50 Dose Area Product 14675 mGy/cm. 14:46:54 Contrast amount:Isovue 300 75ml. 14:46:56 Maximum allowable dose exceeded? No. 14:46:58 Sharps counted by scrub and verified by R.N. 14:47:05 Insertion/operative site no bleeding no hematoma. 14:47:15 Post right femoral artery:stable 14:47:16 Post Procedure Pulses reassessed and unchanged 14:47:19 Post procedure rhythm: unchanged. 14:47:22 Estimated blood loss: 5 ml 14:47:23 Post procedure instruction explained to patient.Patient verbalizes understanding. 14:47:24 Patient needs reinforcement of post procedure teaching. 14:48:45 Procedure type changed to Cath procedure, Diagnostic procedure, C, [facility] w/Coronaries, Sedation Charges, Moderate Sedation up to 30 minutes, PCI procedure, PTCA, PTCA Initial, Hemochron ACT Test 14:48:46 Procedure and supply charges have been captured, reviewed, submitted and are correct. 14:48:51 Procedure Complication : No complications 14:48:54 Vital chart was stopped 14:48:57 [facility] Findings: MVD- PCI performed (see procedure note) 14:49:00 Operative report dictated upon procedure completion. 14:49:00 See physician's report for complete and final results. 14:49:02 Report given to Pre/Post Procedure Room. 14:49:12 Patient transfered to Pre/Post Procedure Room with Stretcher. 14:49:14 Procedure ended. 14:49:14 Full Disclosure recording stopped 14:49:22 ACC-PCI Only Patient was given prescriptions, or instructed by Jason Hodges MD to start/continue the following medications upon discharge: Plavix 14:49:24 End room use (Document Last) 14:50:27 ACT drawn and resulted at 297 seconds. (normal therapeutic range 180-240 seconds). Intervention Summary Intervention Notes Time ActionType Lesion and Equipment Action# Pressure Duration Attributes Used 14:44:40 Inflate Prox LAD EUPHORA 1 6 00:30 balloon 3.0 x 20 Balloon ([id number]) Device Usage Item Name Manufacture Quantity Catalog Hospital Part Current Minimal L ot# / Number Charge Number Stock Stock Serial# Code ACIST Acist 1 46583 083938 164623 870057 20 Syringe Medical (67154) Systems Inc Bag Microtek 1 2001S 477789 42224 327799 5 Decanter Medical Inc. () Medline Medline 1 [id number] 980407 29203 438144 5 Cath Pack ([id number]) ACIST Hand Acist 1 89508 609248 827784 694895 5 Control Medical (25554) Systems Inc ACIST Acist 1 06080 671959 921746 812380 5 Manifold Medical (31565) Systems Inc DIAGNOSTIC Cardinal 1 WR0086 825286 35019 238529 30 Multipack Health 5Fr catheter set (CE0962) Tegaderm 4 3M 1 1626W 217441 544186 864665 5 x 4 (1626W) SHEATH 5FR Terumo 1 NVR217 705914 897466 197821 5 Monroe (PHT708) EMERALD Cardinal 1 502-455 498226 301717 889537 5 Guide Wire Health (502-455) MULTIPACK Cardinal 1 220516 5 JL 4.0 5Fr Health catheter MULTIPACK Cardinal 1 486832 5 3DRC 5Fr Health catheter MULTIPACK Cardinal 1 812940 5 Pigtail 5 Health Fr catheter GUIDE 6FR Cardinal 1 [id number] 341289 049352 296998 10 XBLAD 3.5 Health catheter (52338904) WHISPER Kebede 1 [id number] 754489 288131 008152 5 300cm guide Vascular wire (1911025VJ) INFLATOR Merit 1 YY6074 871767 667934 660403 15 Merit Medical BasixCompak (OB1405) SHEATH 6FR Terumo 1 WNH014 011812 021208 014034 40 Monroe (QAN508) EUPHORA 3.0 Medtronic 1 [id number] 834514 977036 839489 5 2 [id number] x 20 Balloon ([id number]) EXOSEAL 6Fr Cardinal 1 EX600 076394 739930 462152 10 (EX600) Health Signature Audit [place] Stage Time Signature Unsigned Intra-Procedure 10/04/2019 Jillian Medina 2:50:08 PM RT(R) Intra-Procedure 10/04/2019 Leatha Ro RN 2:50:29 PM Intra-Procedure 10/04/2019 Jason Weems 2:51:08 PM Navid GRANADOS Signatures Performing Physician : Signature : Jason Hodges MD Date : Time : Nurse : Leatha Ro RN Signature : Date : Time : Monitor : Jillian Medina RT Signature : Date : Time : [facility] [address], [place] [address]
[~2019-10-04 12:10] MED LIST changes: +REQUIP0.25 MG PO; -REQUIP1 MG PO
[2019-10-04] MEDS ORDERED: CRESTOR40 MG PO (12:45)
[2019-10-04 12:51] VITALS: BP 127/79; BMI 30.2
[2019-10-04 13:15] LABS: EOSINOPHILS 0.7 % (0-7); HEMATOCRIT 42.4 % (36.0-48.0); HEMOGLOBIN 14.2 g/dL (12-16); IMMATURE GRANULOCYTES 0.1 % (0-5); LYMPHOCYTES 40.6 % (15-50); MCH 29.9 pg (26.0-34.0); MCHC 33.5 g/dL (31.0-37.0); MCV 89.3 fL (80.0-100.0); MEAN PLATELET VOLUME 9.3 fL (7.4-10.4); MONOCYTES 8.3 % (2-11); NEUTROPHILS 47.3 % (40-80); PLATELET COUNT 191 10x3/uL (130-400); RBC 4.75 10x6/uL (4.00-5.40); RDW 13.4 % (11.5-14.5); WBC 8.2 10x3/uL (4.8-10.8)
[2019-10-04 13:24] LABS: LDL-HDL RATIO 0.6 ratio (1.5-3.5)
[2019-10-04 13:25] LABS: CALC OSMOLALITY 267 mosm/kg (275-300); CALCIUM 8.7 mg/dL (8.5-10.1); CARBON DIOXIDE 27.6 mmol/L (21.0-32.0); CHLORIDE - SERUM 103 mmol/L (98-107); CREATININE - SERUM 0.7 mg/dL (0.6-1.3); GLUCOSE 86 mg/dL (74-106); SODIUM 135 mmol/L (136-145); UREA NITROGEN 10 mg/dL (7-18); eGFR NON AFRICAN AMERICAN > 90 mL/min (90-120)
[2019-10-04 13:33] LABS: POTASSIUM - SERUM 4.6 mmol/L (3.5-5.1)
--- NOTE | 2019-10-04 15:10 | NUR ---
PT REC'D TO ROOM 3 VIA STRETCHER FROM TOWEL SORTER. MONITORS ESTAB. AT BS. SEE RAILWAY HEAD TENDER. ALARMS ON AND C/L IN REACH.
--- NOTE | 2019-10-04 15:25 | NUR ---
R GROIN SITE C/D/I, NO S/S BLEEDING OR HEMATOMA. L GROIN SITE C/D/I, NO NEW DRAINAGE NOTED. PULSES PALP, FEET WARM WITH BRISK CAP REFILL. VSS. AT BS. ALARMS ON AND C/L IN REACH.
--- NOTE | 2019-10-04 15:55 | NUR ---
VSS. R AND L GROIN SITES C/D/I, NO S/S BLEEDING OR HEMATOMA. PULSES PALP WITH BRISK CAP REFILL. VSS. PT DENIES PAIN OR NEEDS. ALARMS ON AND C/L IN REACH.
--- NOTE | 2019-10-04 16:10 | NUR ---
R GROIN SITE C/D/I, SMALL AMT RED DRAINAGE NOTED UNDER TEGADERM, WILL CONT CLOSE MONITORING, NO S/S BLEEDING OR HEMATOMA. VSS. C/L IN REACH.
--- NOTE | 2019-10-04 16:35 | NUR ---
PT ON BEDPAN - VOIDED 200CC CLEAR, YELLOW URINE, RANGEL-CARE PROVIDED. R GROIN SITE UNCHANGED, C/D/I, NO S/S BLEEDING OR SWELLING. PULSES PALP. VSS. C/L IN REACH.
--- NOTE | 2019-10-04 17:00 | NUR ---
PT WATCHING TV. TAKING SIPS/ICE CHIPS WITHOUT DIFFICULTY. R GROIN SITE D/I, NO CHANGE IN SMALL AMT RED DRAINAGE UNDER TEGADERM. PULSES PALP. VSS. ALARMS ON AND C/L IN REACH.
--- NOTE | 2019-10-04 17:29 | NUR ---
DSG CHANGES TO GROIN SITES - VERY SMALL AMT OF OOZING FROM SKIN PUNCTURE NOTED. R GROIN EXOSEAL SITE WITH NO S/S BLEEDING OR HEMATOMA. AT BS. ALARMS ON AND C/L IN REACH.
--- NOTE | 2019-10-04 17:45 | NUR ---
GROIN SITES C/D/I. PULSES PALP. HOB ELEVATED AND SANDWICH TRAY PROVIDED. ALARMS ON AND C/L IN REACH.
--- NOTE | 2019-10-04 18:00 | NUR ---
NO N/V, VSS. GROIN SITES C/D/I. PT DENIES NEEDS OR PAIN.
--- NOTE | 2019-10-04 18:31 | NUR ---
ALL DISCHARGE INSTRUCTIONS REVIEWED WITH PT AND HER - INCLUDING RESTRICTIONS, MEDS AND F/U APPT. BOTH VERBALIZE UNDERSTANDING.
--- NOTE | 2019-10-04 18:36 | NUR ---
PIV D/C'D INTACT, DSG APPLIED, AND PT ALLOWED UP TO GET DRESSED AND GO TO BR INDEPENDENTLY.
--- NOTE | 2019-10-04 18:41 | NUR ---
PT BACK FROM BATHROOM, FELT LIGHT HEADED - BECAME NAUSEATED - BACK IN BED - B/P 91-45. EMESIS 50 CC FOOD. PT WAS HOT, THEN DIAPHORETIC - THEN COLD. PT FELT BETTER AT 1843 B/P 110/45. PT SAT AT BS X 10 MIN, B/P 96/56 - THEN HAD ANOTHER EPISODE JUST LIKE THE FIRST. B/P 97/76. DR. HALL PAGED AND NOTIFIED - NEW ORDERS REC'D TO ADMIT PT FOR IV FLUIDS - NEW 22GA PIV SITED TO L AC - NS INFUSING TO GRAVITY.
--- NOTE | 2019-10-04 19:15 | NUR ---
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 PT CALM AT THIS TIME, B/P .
[2019-10-04 19:28] LABS: HEMATOCRIT 39.8 % (36.0-48.0); HEMOGLOBIN 13.4 g/dL (12-16)
--- NOTE | 2019-10-04 19:38 | NUR ---
REPORT CALLED TO JEFFERY ON MED 2, WAITING FOR ROOM TO BE CLEANED. PT RESTING QUIETLY, B/P 98/62, HR 68. HAS GONE HOME.
[2019-10-04 20:00] VITALS: BP 106/58
--- NOTE | 2019-10-04 20:00 | NUR ---
PT TRANSFERRED TO 2125 VIA STRETCHER..
[2019-10-05] VITALS: BP 105/56
[2019-10-05 03:39] VITALS: Ht 167.6 cm; Wt 63.6 kg
[2019-10-05 04:00] VITALS: BP 103/46
[2019-10-05 08:01] VITALS: BP 102/52
--- NOTE | 2019-10-05 09:39 | NUR ---
IV OUT OF LEFT AC. CATHETER TIP INTACT. DRESSING APPLIED.
--- NOTE | 2019-10-08 08:19 | OP ---
PATIENT NAME: WILEY DE LEON MEDICAL RECORD: [id number] :70 LOCATION:D.CAT ADMISSION DATE: SURGEON: KENJI KOCH MD DATE OF OPERATION: 10/04/2019 PROCEDURE: Left heart catheterization, selective coronary angiography plus PTCA report, right femoral artery approach. CATHETERS: A 5-[place]izen [place] sheath, 5/4 left and right Berta, 5/4 pig. The procedure was well tolerated. The patient returned to the serra. Sheath removed. ExoSeal device placed. FINDINGS: Left ventriculography in 30-degree LEES view: Normal wall motion. Normal systolic function. CORONARY ANATOMY: LEFT MAIN: Free of disease. LAD: In an area of previous stenting shows a very discrete 90% stenosis. Rest of the stenting is widely patent as well as the rest of inupiat vessel. CIRCUMFLEX: Area of previous stenting is widely patent. RIGHT CORONARY ARTERY: Area of previous stenting is patent with no progression of inupiat disease. PLAN: Intervention of LAD momentarily. DESCRIPTION OF PROCEDURE: A 5-Citizen [place] sheath was exchanged for a 6-[place]izen [place] sheath. XB LAD guide catheter provided excellent guide catheter support followed by 300 cm Whisper wire placed across the tightly occluded LAD down to this portion of vessel. We used a single inflation of a 3.0 balloon up to 6 atmospheres, shows very soft restenosis, no significant residual. GINNA flow was 3 throughout the procedure. Heparin was used during the case. Sheath was closed with ExoSeal device. 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
== END 2019-10-05 10:56 | disposition home or self-care (01) ==
LOC: D.CATH 12:10 → D.M2 19:43 → D.CATH 10-05 10:56
PROVIDERS: Internal Medicine Cardiovascular Disease; ATTEND Internal Medicine Interventional Cardiology
DX: I25.10 Atherosclerotic heart disease of native coronary artery without angina pectoris (principal); R94.30 Abnormal result of cardiovascular function study, unspecified; R07.9 Chest pain, unspecified; I10 Essential (primary) hypertension; R06.09 Other forms of dyspnea